=== PATIENT | female | born 1950 | race Caucasian/White ===

== ENCOUNTER → 2017-04-05 | Outpatient (CLI) | payer MEDICARE ==
[~2017-04-05] MED LIST: ASPI81CH37 CHEW; ATEN50TA PO; CLOR7.5T3 PO; COMMODE 3-IN-11 MIS; CPMMACHINE; DULA10IN SQ; ENOX40P SQ; GABA300C5 PO; HYDR-3288 PO; HYDR25TA5 PO; IBUP200C17 PO; LISI-515 PO; LOVA40TA PO; MULT1TAB PO; NOVONP2 SQ; NOVORP2 SQ; OMEP20TA PO; TRAM50TA PO; VITA1000 PO; VITA10002 PO; WALKER WHEELS/F1 MIS
[2017-04-05 09:11] LABS: AUTOMATED NEUTROPHIL # 7.1 TH/MM3 (1.8-7.7); BASOPHIL # 0.1 TH/MM3 (0-0.2); BASOPHIL % 0.8 % (0.0-2.0); EOSINOPHIL # 0.3 TH/MM3 (0-0.4); EOSINOPHIL % 3.1 % (0.0-4.0); HEMO FLAGS DIFF FINAL; LYMPH % 14.3 % (9.0-44.0); LYMPHOCYTE # 1.4 TH/MM3 (1.0-4.8); MEAN CELL VOLUME 89.3 FL (80.0-100.0); MEAN CORPUSCULAR HEMOGLOBIN 29.8 PG (27.0-34.0); MEAN CORPUSCULAR HGB CONC 33.3 % (32.0-36.0); MONO % 6.4 % (0.0-8.0); NEUT % 75.4 % (16.0-70.0); PLATELET COUNT 246 TH/MM3 (150-450); RED BLOOD COUNT 3.58 MIL/MM3 (4.00-5.30); RED CELL DISTRIBUTION WIDTH 13.4 % (11.6-17.2); WHITE BLOOD COUNT 9.4 TH/MM3 (4.0-11.0)
[2017-04-05 09:16] LABS: PROTHROMBIN TIME - PATIENT 10.6 SEC (9.8-11.6)
[2017-04-05 09:36] LABS: WESTERGREN SEDIMENTATION RATE 79 mm/hr (0-30)
[2017-04-05 09:37] LABS: ANION GAP 6 MEQ/L (5-15); AST (GOT) 10 U/L (15-37); BICARBONATE 24.7 MEQ/L (21.0-32.0); BLOOD UREA NITROGEN 31 MG/DL (7-18); CHLORIDE 100 MEQ/L (98-107); GLOMERULAR FILTRATION RATE 42 ML/MIN (>89); GLUCOSE,FASTING 125 MG/DL (74-99); POTASSIUM 4.7 MEQ/L (3.5-5.1); SODIUM (NA) 131 MEQ/L (136-145)
[2017-04-05 09:43] LABS: ALKALINE PHOSPHATASE 102 U/L (45-117); ALT (GPT) 22 U/L (10-53); TOTAL BILIRUBIN ADULT 0.3 MG/DL (0.2-1.0)
--- NOTE | 2017-04-05 09:58 | RADRPT ---
EXAM DATE/TIME: 04/05/2017 09:37 [facility] COMPARISON: No previous studies available for comparison. INDICATIONS : Evaluate for pneumonia, pneumothorax or communicable disease. Preop chest for right knee replacement on 04/22/17 MEDICAL HISTORY : Chronic obstructive pulmonary disease. SURGICAL HISTORY : None. ENCOUNTER: Initial ACUITY: 1 day PAIN SCORE: 0/10 LOCATION: Bilateral chest FINDINGS: PA and lateral views of the chest demonstrate the lungs to be symmetrically aerated without evidence of mass, infiltrate or effusion. The cardiomediastinal contours are unremarkable. Osseous structure s are intact. CONCLUSION: Normal examination for a patient of this age. Quan Meyers MD on April 05, 2017 at 9:57 Board Certified Radiologist. This report was verified electronically.
[2017-04-05 10:48] LABS: BACTERIA, URINE FEW /hpf; BLOOD, URINE NEG (NEG); COMMENT (UR) CULTURE INDICATED; CULTURE IF INDICATED CULTURE INDICATED; GLUCOSE,URINE NEG (NEG); HYALINE CAST, URINE 13 /lpf (RARE); KETONE, URINE NEG (NEG); MUCUS URINE FEW /lpf (OCC); NITRITE,URINE NEG (NEG); PH, URINE 5.5 (5.0-8.5); SQUAMOUS EPITHELIAL CELL URINE 11 /hpf (0-5); URINE COLOR YELLOW (YELLW/STRAW)
== END ==
LOC: CPRE 08:36
PROVIDERS: ATTEND Orthopaedic Surgery Sports Medicine
DX: Z01.810 Encounter for preprocedural cardiovascular examination (principal); Z01.811 Encounter for preprocedural respiratory examination; Z01.812 Encounter for preprocedural laboratory examination; Z01.818 Encounter for other preprocedural examination; Z96.60 Presence of unspecified orthopedic joint implant; Z79.01 Long term (current) use of anticoagulants; M25.50 Pain in unspecified joint; M17.11 Unilateral primary osteoarthritis, right knee; R82.99 Other abnormal findings in urine
CPT/HCPCS: 36415; 71020; 80053; 81001; 85025; 85610; 85652; 85730; 87086

== ENCOUNTER 2017-04-12 14:52 | Inpatient (IN) | payer MEDICARE ==
[~2017-04-12] VITALS: Ht 151.6 cm; Wt 96.1 kg
[~2017-04-12 14:52] MED LIST changes: -ASPI81CH37 CHEW; -COMMODE 3-IN-11 MIS; -CPMMACHINE; -ENOX40P SQ; -HYDR-3288 PO; -WALKER WHEELS/F1 MIS
[2017-04-22] MEDS ORDERED: HYDR-3288 PO (06:59)
[2017-04-22] MEDS ORDERED: ENOX40P SQ (07:00)
[2017-04-22] MEDS ORDERED: SODIUM CHLORIDE 0.9% FLUSH 5 ML FLUSH IVF PRN (07:00)
[2017-04-22] MEDS ORDERED: ZOLPIDEM TARTRATE 5 MG TAB PO PRN (07:00)
[2017-04-22] MEDS ORDERED: NALOXONE HCL 0.4 MG/ML AMP IV PRN (07:00)
[2017-04-22] MEDS ORDERED: ASPI81CH37 CHEW (07:00)
[2017-04-22] MEDS ORDERED: ONDANSETRON HCL 4 MG/2 ML VIAL IVP PRN (07:00)
[2017-04-22] MEDS ORDERED: Post-op Orders (for Pharmacy) MISC XX ONE (07:00)
[2017-04-22] MEDS: SODIUM CHLOR 0.9% 1000 ML INJ 1,000 ML IV SCH ×3 (07:00→22:32)
[2017-04-22] MEDS ORDERED: diphenhydrAMINE HCL 50 MG/ML VIAL IV PRN (07:00)
[2017-04-22] MEDS ORDERED: MORPHINE SULFATE 4 MG/ML INJ IV PUSH PRN (07:00)
[2017-04-22] MEDS ORDERED: ACETAMINOPHEN/HYDROcodone 325 MG/7.5 MG TAB PO PRN (07:00)
[2017-04-22] MEDS ORDERED: BISACODYL 10 MG SUPP RECTAL PRN (07:00)
[2017-04-22] MEDS ORDERED: TRANEXAMIC PERI-ARTICULAR 3,000 MG/NS 100 ML P-ARTICULR SCH ×2 (07:15)
[2017-04-22] MEDS ORDERED: CHLORHEXIDINE GLUCONATE 4% SOLN 120 ML BTL TOPICAL SCH (07:15)
[2017-04-22] MEDS ORDERED: POVIDONE IODINE 7.5% SCRUB 118 ML BOTTLE TOPICAL SCH (07:15)
[2017-04-22] MEDS ORDERED: VANCOMYCIN 1000 MG/NS 250 ML (for <70 kg) IV SCH ×2 (07:15)
[2017-04-22] MEDS ORDERED: TRANEXAMIC ACID IV SCH (07:15)
[2017-04-22] MEDS ORDERED: SODIUM CHLORIDE 0.9% IV SCH (07:15)
[2017-04-22] MEDS ORDERED: ROPIVACAINE PERI-ARTICULAR INJECTION. P-ARTICULR SCH ×5 (07:15)
[2017-04-22] MEDS ORDERED: DEXAMETHASONE SOD PHOS 20 MG/5 ML VIAL IV SCH (07:30)
[2017-04-22] MEDS ORDERED: LACTATED RINGER'S 1000 ML IV PRN (07:30)
[2017-04-22] MEDS ORDERED: INSULIN HUMAN REGULAR 1,000 UNITS/10 ML VIAL SQ PRN (07:30)
[2017-04-22] MEDS ORDERED: POVIDONE IODINE 5% (ANTISEPSIS KIT) 4 APPLICATIONS EACH NARE PRN (07:30)
[2017-04-22] MEDS ORDERED: ceFAZolin 2 GM PREMIX 50 ML IV SCH (07:30)
[2017-04-22] MEDS ORDERED: METOPROLOL TARTRATE 25 MG TAB PO PRN (07:30)
[2017-04-22] MEDS ORDERED: SODIUM CHLORID 0.9% 500 ML IV PRN (07:30)
[2017-04-22] MEDS ORDERED: CHLORHEXIDINE GLUCONATE 2 % 1 PACK (2 CLOTHS) TOPICAL PRN (07:30)
[2017-04-22] MEDS ORDERED: [UNRECOGNIZED DRUG - OTHER] PO (07:45)
[2017-04-22] MEDS ORDERED: CLORAZEPATE 7.5 MG PO (07:45)
[2017-04-22 07:48] VITALS: BP 185/78; PULSE 64; RESP 16; TEMP 98.3; O2SAT 97
[2017-04-22] MEDS ORDERED: DULAGLUTIDE 0.75 MG SQ SCH (08:00)
[2017-04-22] MEDS ORDERED: CLINDAMYCIN INJ 900 MG in SODIUM CHLORIDE 0.9% INJ 100 ML IV SCH (08:30)
[2017-04-22] MEDS ORDERED: SODIUM CHLORIDE 0.9% INJ 100 ML ONE (08:30)
[2017-04-22] MEDS: ATENOLOL 50 MG TAB PO SCH (09:00)
[2017-04-22] MEDS: GABAPENTIN 300 MG CAP PO SCH ×2 (09:00→22:32)
[2017-04-22] MEDS: SODIUM CHLORIDE 0.9% FLUSH 5 ML FLUSH IVF SCH ×2 (09:00→21:00)
[2017-04-22] MEDS: HYDROCHLOROTHIAZIDE 25 MG TAB PO SCH ×2 (09:00→22:32)
[2017-04-22] MEDS: PANTOPRAZOLE SOD 20 MG DELAYED RELEASE TAB PO SCH (09:00)
[2017-04-22] MEDS: PRAVASTATIN SOD 40 MG TAB PO SCH (09:00)
[2017-04-22] MEDS: LISINOPRIL 20 MG TAB PO SCH (09:00)
[2017-04-22] MEDS ORDERED: GENTAMICIN SULFATE 80 MG/2 ML VIAL ONE (09:18)
[2017-04-22] MEDS ORDERED: ACETAMINOPHEN 1000 MG/100 ML VIAL IV ONE (09:31)
[2017-04-22] MEDS ORDERED: FAMOTIDINE 20 MG/2 ML VIAL ONE (09:31)
[2017-04-22] MEDS ORDERED: MIDAZOLAM HCL 2 MG/2 ML VIAL ONE (09:31)
[2017-04-22] MEDS ORDERED: PROPOFOL 200 MG/20 ML AMP IV ONE (11:51)
--- NOTE | 2017-04-22 13:09 | RADRPT ---
EXAM DATE/TIME: 04/22/2017 12:32 [facility] COMPARISON: No previous studies available for comparison. INDICATIONS : Post operative right knee. MEDICAL HISTORY : None. SURGICAL HISTORY : None. ENCOUNTER: Initial ACUITY: 1 day PAIN SCORE: Non-responsive. LOCATION: Right knee. FINDINGS: AP and lateral views of the knee following arthroplasty reveals a prosthesis in anatomic alignment. F racture is not appreciated. There is intra-articular air. CONCLUSION: Status post total knee arthroplasty. Zane Lassiter MD FACR Board Certified Radiologist. This report was verified electronically.
[2017-04-22] MEDS ORDERED: DO NOT ADM ANY ANTICOAGULANT DRUGS PRN (13:15)
--- NOTE | 2017-04-22 13:30 | PD.CONS ---
HPI Service [facility] Hospitalists Consult Requested By Dr. Jarad Carr Reason for Consult Medical Management Primary Care Physician Cash Zambrano DO Diagnoses: History of Present Illness Ms. Vazquez is a pleasant 67 y/o WF with diabetes mellitus, HTN, hyperlipidemia and osteoarthritis. She was admitted to [facility] on 04/22/17 for elective right total knee arthroplasty with Dr. Carr. [facility] Hospitalist team was consulted to help with medical management. Pt is seen post-operatively and is without any specific complaints. Her pain is well controlled. Phipps cath is in place. Denies any chest pain, SOB, palpitations, dizziness, nausea/vomiting or abdominal pain. Review of Systems Constitutional: DENIES: Fever, Chills Respiratory: DENIES: Cough, Shortness of breath Cardiovascular: DENIES: Chest pain, Palpitations Gastrointestinal: DENIES: Abdominal pain, Nausea, Vomiting Musculoskeletal: DENIES: Joint pain Integumentary: DENIES: Rash Neurologic: DENIES: Headache Psychiatric: DENIES: Confusion Past Family Social History Past Medical History Anxiety Diabetes mellitus, type 2 Diabetic nephropathy HTN Hyperlipidemia Obesity GABRIELLA Osteoarthritis Vitamin B12 deficiency Past Surgical History Left total knee arthroplasty Tubal ligation Reported Medications -Hydrochlorothiazide 25 Mg PO BID -Clorazepate 7.5 Mg PO BID PRN -Omeprazole 20 Mg Tab 20 Mg PO DAILY -Lovastatin 40 Mg PO DAILY -Lisinopril 20 Mg PO DAILY --Novolin N Inj 35 Units SQ BID at breakfast and at bedtime --Novolin R Inj 25 units SQ at breakfast, 25 units SQ at lunch, and 44 units SQ at dinner --Tramadol 50 Mg PO DAILY PRN --Gabapentin 100 Mg PO BID --Atenolol 50 Mg PO BID ?Trulicity Inj (Dulaglutide Inj) 0.75 Mg/0.5 Ml Pen 0.75 Mg SQ Q7D SATURDAY -Centrum Silver Adult 50+ 1 Tab PO DAILY -Vitamin B-12 1,000 Mcg PO DAILY -Vitamin D-1000 50,000 Units PO WEEKLY -Advil Liqui-Gels 200 Mg Capsule 1 Cap PO BID Allergies: Coded Allergies: Penicillin (Verified Allergy, Intermediate, RXN= HIVES, 04/22/17) Ultram (Verified Adverse Reaction, Intermediate, Nausea/Vomiting, 04/22/17) Family History Mother with hx of diabetes, HTN, lung CA Father with hx of CAD Social History Denies any tobacco or illicit drug use Occasional alcohol use Lives alone in her private residence. Physical Exam Vital Signs Vital Signs Date Time Temp Pulse Resp B/P Pulse Ox O2 Delivery O2 Flow Rate FiO2 04/22/17 13:00 63 16 112/53 97 Room Air 04/22/17 12:45 65 16 114/62 98 Room Air 04/22/17 12:32 97.5 64 16 124/91 98 Room Air 04/22/17 07:48 98.3 64 16 185/78 97 Physical Exam GENERAL: This is a well-nourished, well-developed patient, in no apparent distress. HEENT: Atraumatic. Normocephalic. No temporal or scalp tenderness. No scleral icterus. Airway patent. NECK: Trachea midline, supple, nontender. CARDIO: Regular, 1/6 JOANNE. RESP: CTA bilaterally. No wheezes, rales, or rhonchi. ABD: +BS, soft, non-tender, nondistended. EXT: Right knee bandages are c/d/i, in CPM machine NEURO: Awake and alert. Motor and sensory grossly within normal limits. Normal speech. Laboratory Laboratory Tests Test 04/22/17 07:40 Blood Type A POSITIVE Antibody Screen NEGATIVE Blood Bank Comment Imaging Last Impressions Knee X-Ray 04/22/17 0691 Signed Impressions: Service Date/Time: Saturday, April 22, 2017 12:32 - CONCLUSION: Status post total knee arthroplasty. Zane Lassiter MD Assessment and Plan Problem List: (1) Primary localized osteoarthrosis, lower leg Status: Chronic Plan: - Pt s/p Right total knee arthroplasty on 04/22/[address] Carr - Post-op pain control per Ortho - PT daily - IS - Constipation precautions - DVT prophylaxis (2) Diabetes mellitus type 2, insulin dependent Status: Chronic Plan: - NPH 10 UNITS BID, pt normally takes 35 units BID - NovoLog SSI - Accu checks (3) HTN (hypertension), benign Status: Chronic Plan: - Home meds resumed with parameters - Monitor (4) Hyperlipidemia Status: Chronic Assessment and Plan Patient examined. Assessment and plan formulated with Angela Friedman PA-C. I agree with the above. s/p right tka. htn/dm cont lower insulin dosing and ssi. titrate as needed. dvt prophylaxis Problem Qualifiers (1) Primary localized osteoarthrosis, lower leg: Qualified Code: M17.11 - Primary localized osteoarthrosis, lower leg, right Angela Friedman Apr 22, 2017 13:30 Ryan Guan MD Apr 22, 2017 21:23
[2017-04-22] MEDS: INSULIN ASPART SUPPLEMENTAL SCALE SQ SCH ×2 (16:00→22:48)
[2017-04-22 16:08] VITALS: BP 167/70; PULSE 66; RESP 19; TEMP 95.6; O2SAT 98
[2017-04-22] MEDS ORDERED: DEXTROSE 50% IN WATER 50 ML VIAL(D50) IV PUSH PRN (16:30)
[2017-04-22] MEDS ORDERED: GLUCAGON 1 MG/ML VIAL OTHER PRN (16:30)
[2017-04-22] MEDS ORDERED: INSULIN HUMAN NPH 1,000 UNITS/10 ML VIAL SQ SCH (17:00)
[2017-04-22 19:00] VITALS: BP 150/67; PULSE 71; RESP 16; TEMP 96.9; O2SAT 97
[2017-04-22] MEDS: VANCOMYCIN INJ 1,000 MG in SODIUM CHLOR 0.9% 250 ML INJ 250 ML IV SCH (22:31)
[2017-04-23] VITALS: BP 131/53; PULSE 74; RESP 15; TEMP 97.1; O2SAT 95
[2017-04-23 00:05] VITALS: O2SAT 97
[2017-04-23 04:00] VITALS: BP 123/57; PULSE 68; RESP 16; TEMP 97.2; O2SAT 96
[2017-04-23] MEDS: INSULIN ASPART SUPPLEMENTAL SCALE SQ SCH ×3 (07:00→16:00)
[2017-04-23 07:18] LABS: HEMATOCRIT 25.1 % (35.0-46.0); MEAN CELL VOLUME 89.3 FL (80.0-100.0); MEAN CORPUSCULAR HGB CONC 34.7 % (32.0-36.0); PLATELET COUNT 212 TH/MM3 (150-450); RED BLOOD COUNT 2.81 MIL/MM3 (4.00-5.30); RED CELL DISTRIBUTION WIDTH 13.7 % (11.6-17.2); REVIEW FLAG FINAL; WHITE BLOOD COUNT 12.6 TH/MM3 (4.0-11.0)
[2017-04-23 07:47] LABS: POTASSIUM 4.6 MEQ/L (3.5-5.1)
[2017-04-23 08:00] VITALS: BP 175/74; PULSE 80; RESP 16; TEMP 99.1; O2SAT 100
[2017-04-23] MEDS: VANCOMYCIN INJ 1,000 MG in SODIUM CHLOR 0.9% 250 ML INJ 250 ML IV SCH (08:11)
[2017-04-23] MEDS: PRAVASTATIN SOD 40 MG TAB PO SCH (08:12)
[2017-04-23] MEDS: GABAPENTIN 300 MG CAP PO SCH (08:12)
[2017-04-23] MEDS: LISINOPRIL 20 MG TAB PO SCH (08:12)
[2017-04-23] MEDS: SODIUM CHLORIDE 0.9% FLUSH 5 ML FLUSH IVF SCH (08:13)
[2017-04-23] MEDS: PANTOPRAZOLE SOD 20 MG DELAYED RELEASE TAB PO SCH (08:13)
[2017-04-23] MEDS: ATENOLOL 50 MG TAB PO SCH (08:13)
[2017-04-23] MEDS: HYDROCHLOROTHIAZIDE 25 MG TAB PO SCH (08:13)
--- NOTE | 2017-04-23 08:24 | PD.ORT.PN ---
Subjective Post Op Day #: 1 Subjective Remarks pain tolerable. Objective Vitals Vital Signs Date Time Temp Pulse Resp B/P Pulse Ox O2 Delivery O2 Flow Rate FiO2 04/23/17 04:00 97.2 68 16 123/57 96 04/23/17 00:05 97 04/23/17 00:00 97.1 74 15 131/53 95 04/22/17 19:00 96.9 71 16 150/67 97 04/22/17 16:08 95.6 66 19 167/70 98 04/22/17 14:01 67 16 144/67 98 Room Air 04/22/17 13:45 65 16 143/64 99 Room Air 04/22/17 13:30 63 16 120/58 98 Room Air 04/22/17 13:15 62 16 125/60 97 Room Air 04/22/17 13:00 63 16 112/53 97 Room Air 04/22/17 12:45 65 16 114/62 98 Room Air 04/22/17 12:32 97.5 64 16 124/91 98 Room Air I/O 04/22/17 04/22/17 04/22/17 04/23/17 04/23/17 04/23/17 07:00 15:00 23:00 07:00 15:00 23:00 Intake Total 480 ml 1090 ml Output Total 850 ml Balance 480 ml 240 ml Intake Oral 480 ml 240 ml IV Total 850 ml Output Urine Total 850 ml # Voids 2 # Bowel Movements 0 0 Result Diagram: 04/23/17 0604 04/23/17 0604 Objective Remarks in chair, nad incision no erythema, no drainage neg homans nvi Assessment & Plan Ortho Post Op Day #: 1 Problem List: Assessment and Plan s/p R TKA wbat daily dressing changes lovenox d/c planning to snf [id number] signed rx in chart f/up dr. aguilar 2 weeks Jar[place] Apr 23, 2017 08:23
[2017-04-23] MEDS: INSULIN HUMAN NPH 1,000 UNITS/10 ML VIAL SQ SCH ×2 (08:25→17:00)
--- NOTE | 2017-04-23 08:25 | HHI.DCPOC ---
Discharge Care Plan Diagnosis: (1) Primary localized osteoarthrosis, lower leg Your Health Problems Are: Difficulty with ADL Goals to Promote Your Health * To prevent worsening of your condition and complications * To maintain your health at the optimal level Directions to Meet Your Goals Take your medications as prescribed Follow your dietary instruction Follow activity as directed Keep your appointments as scheduled Take your immunizations and boosters as scheduled If your symptoms worsen call your PCP, if no PCP go to Urgent Care Center or Emergency Room Smoking is Dangerous to Your Health. Avoid second hand smoke Call the 24-hour hour crisis hotline for domestic abuse at Jarad [place] Apr 23, 2017 08:25
[2017-04-23] MEDS ORDERED: WALKER WHEELS/F1 MIS (08:27)
[2017-04-23] MEDS ORDERED: CPMMACHINE (08:27)
[2017-04-23] MEDS ORDERED: COMMODE 3-IN-11 MIS (08:28)
[2017-04-23] MEDS ORDERED: PNEUMOCOCCAL POLYVALENT INJ 25 MCG/0.5 ML SYR IM ONE (10:00)
[2017-04-23] MEDS: ACETAMINOPHEN/HYDROcodone 325 MG/7.5 MG TAB PO PRN ×2 (10:44→15:59)
[2017-04-23 12:00] VITALS: BP 165/73; PULSE 66; RESP 16; TEMP 96.2; O2SAT 100
[2017-04-23] MEDS ORDERED: ENOXAPARIN SODIUM 40 MG/0.4 ML SYRINGE SQ SCH (12:00)
[2017-04-23] MEDS: SODIUM CHLOR 0.9% 1000 ML INJ 1,000 ML IV SCH (13:00)
[2017-04-23 16:59] VITALS: RESP 18
[2017-04-23] MEDS ORDERED: MULTIVITAMINS/MINERALS THERAPEUTIC TAB PO SCH (21:00)
[2017-04-23] MEDS ORDERED: DOCUSATE SODIUM 100 MG CAP PO SCH (21:00)
--- NOTE | 2017-04-24 10:43 | MP ---
cc: TAMMY GARCIA M.D. DATE OF SURGERY 04/22/2017 PREOPERATIVE DIAGNOSIS Right knee osteoarthritis POSTOPERATIVE DIAGNOSIS Right knee osteoarthritis PROCEDURE Right total knee arthroplasty SURGEON Dr. Tammy Garcia BOOT TURNER LALIT Morrissey ANESTHESIA Spinal with a femoral nerve block ESTIMATED BLOOD LOSS 50 cc COMPLICATIONS None IMPLANTS USED DePuy attune size 4 posterior stabilized femoral component, size 4 rotating platform tibia baseplate, size 5 mm polyethylene tibial insert, size 32 patella. JUSTIFICATION This patient is a 67-year-old female with a history severe end-stage osteoarthritis involving the right knee. She has severe disabling pain with standing, walking, ambulation and weight bearing activities, severe pain at rest. She has failed greater than three months of nonoperative conservative treatment modalities to include medication therapy, injections, ambulatory assisted aids, home exercise program, activity modification, weight-loss attempts. X-rays of the right knee revealed severe end-stage osteoarthritis with [id number] joint space narrowing, subchondral sclerosis, subchondral cyst osteophyte formation and varus deformity. The patient counseled as to the risks, benefits and alternatives to a total knee arthroplasty. The risks were discussed which include, but not limited to anesthesia, bleeding, infection, damage to nerves, blood vessels, pain, stiffness, failure of components, blood clots, pulmonary embolism and even . The patient's pain is severe. She favored the benefits over the risks and did wish to proceed with surgery. PROCEDURE IN DETAIL A written consent was obtained. The patient identified by name. She was taken to the operating room where spinal anesthesia was administered, as well as a femoral nerve block. A well-padded tourniquet was placed on the right thigh. The right lower extremity prepped and draped using Isopropyl alcohol, Hibiclens solution and Chloraprep solution. After a time-out was performed, an Esmarch bandage was used to exsanguinate the right lower extremity. The tourniquet was inflated to 250 mmHg. A longitudinal incision made over the anterior aspect of the right knee. A medial parapatellar arthrotomy was performed. The patella was everted and a patella resection guide was used to resect 9 mm from the patella. A size 32 mm guide was placed, three drills were placed and a 32 mm trial fit well. Attention was turned to the femur where an intramedullary guide wire was placed and the distal femoral guide was set to remove 10 mm of distal femur, 5 degrees off the anatomic valgus axis alignment and also excised from the distal femoral cut. Attention was turned to the tibia where an extramedullary tibial guide was set to remove 5 mm off the lowest portion of the medial tibial plateau. The tibia guide was pinned in place and a tibial cut was performed. A 5-mm spacer block showed full extension. Attention was turned back to the femur where the AP sizing block measured a size 4. The anterior reference three degree external rotation guide was used to pin a size [address] The anterior, posterior and chamfer cuts were performed. A size 4 PCL box cut was pinned in place and the PCL was box cut with an oscillating saw. The medial and lateral meniscus remnants were removed as well as bone and soft tissue debris from the posterior portion of the knee. A size 4 tibia base was pinned in placed, the tibia was drilled and punched, trial components were evaluated and final components cemented in place. With the current components, the leg could achieve full extension 0 degrees and flexion to 140. No evidence of tibial lift-off, varus-valgus balance appeared appropriate and symmetric. There was slight lateral tracking of the patella and a partial lateral release was performed which allowed for central patellar tracking. The tourniquet was deflated. Bovie cautery was used for hemostasis. The surgical wounds were thoroughly irrigated with sterile saline pulse lavage antibiotic impregnated solution. The arthrotomy incision was closed with #1 Vicryl suture, subcutaneous layer 2-0 Vicryl suture and skin was closed with Dermabond. A sterile dressing applied. The patient tolerated the procedure well. No intraoperative complications noted. [place] physician financial administrative assistant certified was present during the entire procedure to include patient positioning and the procedure itself. The medical necessity of a physician financial administrative assistant was indicated in this case due to the complexity of the procedure. He assisted with appropriate manipulation of the leg and also traction of muscle, tendon, bone and neurovascular structures. He assisted with preparation as well as implantation of the prosthetic replacement. MD ABHISHEK Romo/RIO /12:14 PM /10:25 AM
== END 2017-04-23 19:58 | DRG 470 ==
LOC: HSDI 04-22 06:41 → N06B 04-22 14:39
PROVIDERS: ADMIT Orthopaedic Surgery Sports Medicine; ATTEND Orthopaedic Surgery Sports Medicine
PROC: 3E0T3CZ (ICD-10-PCS; 2017-04-22)
PROC: 0SRC0J9 Replacement of Right Knee Joint with Synthetic Substitute, Cemented, Open Approach (ICD-10-PCS; principal; 2017-04-22 09:58)
DX: M17.11 Unilateral primary osteoarthritis, right knee (principal); E11.21 Type 2 diabetes mellitus with diabetic nephropathy; K76.0 Fatty (change of) liver, not elsewhere classified; Z68.41 Body mass index [BMI] 40.0-44.9, adult; J44.9 Chronic obstructive pulmonary disease, unspecified; I10 Essential (primary) hypertension; E66.9 Obesity, unspecified; E78.5 Hyperlipidemia, unspecified; K21.9 Gastro-esophageal reflux disease without esophagitis; F41.9 Anxiety disorder, unspecified; G47.33 Obstructive sleep apnea (adult) (pediatric); Z96.652 Presence of left artificial knee joint; Z79.4 Long term (current) use of insulin; Z23 Encounter for immunization
CPT/HCPCS: 73560; 80048; 82948; 85027; 86850; 86900; 86901; 90732; 94150; C1776; J0131; J0171; J0735; J1100; J1580; J1650; J1815; J1885; J2250; J2795; J3370; J7030; J7050; J7120; L1830

== ENCOUNTER 2017-05-12 14:50 | Inpatient (IN) | payer MEDICARE ==
[~2017-05-12] VITALS: Ht 149.9 cm; Wt 95.7 kg
[~2017-05-12 14:50] MED LIST changes: +ASPI81CH37 CHEW; +COMMODE 3-IN-11 MIS; +CPMMACHINE; +ENOX40P SQ; +HYDR-3288 PO; -IBUP200C17 PO; +WALKER WHEELS/F1 MIS
[2017-05-12 15:00] VITALS: BP 170/90; PULSE 91; RESP 21; TEMP 98.6; O2SAT 98
[2017-05-12 15:14] VITALS: O2SAT 98
[2017-05-12] MEDS ORDERED: SODIUM CHLORIDE 0.9% FLUSH 10 ML FLUSH IV FLUSH PRN ×2 (15:15→18:00)
[2017-05-12] MEDS ORDERED: SODIUM CHLORID 0.9% 500 ML INJ 500 ML IV ONE ×2 (15:15→17:15)
[2017-05-12] MEDS ORDERED: ONDANSETRON HCL 4 MG/2 ML VIAL IVP ONE (15:15)
--- NOTE | 2017-05-12 15:21 | PD ---
HPI Chief Complaint: GI Complaint Time Seen by Provider: 15:07 Travel History International Travel<30 days: No Contact w/Intl Traveler<30days: No Traveled to known affect area: No History of Present Illness HPI 67-year-old female with history of right knee replacement done 2 weeks ago, presents to the ER today for 2 days history of worsening nausea, vomiting, not improved with Zofran. She denies any fevers, states that she did have some loose stools today. She denies any blood in the stools, abdominal pains, or any other symptoms. Modifying Factors: None Associated Signs & Symptoms: Nausea, vomiting, loose stool Risk Factors: Recent surgery PFSH Past Medical History Asthma: Yes Cancer: No Cardiovascular Problems: No (MURMUR) High Cholesterol: Yes COPD: Yes Diabetes: Yes (TYPE II ) Endocrine: Yes GERD: Yes Genitourinary: No Hepatitis: No Hiatal Hernia: Yes Immune Disorder: No Musculoskeletal: Yes (OA) Neurologic: No Psychiatric: No Reproductive: No Respiratory: Yes (COPD) Thyroid Disease: No Ulcer: Yes Past Surgical History Abdominal Surgery: Yes (HERNIA) AICD: No Body Medical Devices: PARTIAL L KNEE Cardiac Surgery: No Ear Surgery: No Endocrine Surgery: No Eye Surgery: No Genitourinary Surgery: No Gynecologic Surgery: Yes (TUBAL) Joint Replacement: Yes (PARTIAL L KNEE AND R TOTAL KNEE) Oral Surgery: Yes (T&A) Pacemaker: No Thoracic Surgery: No Social History Alcohol Use: No Tobacco Use: No Substance Use: No Allergies-Medications (Allergen,Severity, Reaction): Coded Allergies: Penicillin (Verified Allergy, Intermediate, RXN= HIVES, 05/12/17) Ultram (Verified Adverse Reaction, Intermediate, Nausea/Vomiting, 05/12/17) Reported Meds & Prescriptions Reported Meds & Active Scripts Active Commode 3-in-1 (Device) 1 Mis Mis 1 Ea .ROUTE DIRECTED Walker with Front Wheels (Device) 1 Mis Mis 1 Ea .ROUTE DIRECTED CPM-Continuous Passive Motion Machine 1 Ea Device 1 Ea .ROUTE DIRECTED Aspirin Low Dose (Aspirin) 81 Mg Chew 81 Mg CHEW BID Lovenox Inj (Enoxaparin Sodium) 40 Mg/0.4 Ml Syr 40 Mg SQ DAILY [place] (Hydrocodone-Acetaminophen) 7.5-325 mg Tab 1-2 Tab PO Q6H PRN Reported Hydrochlorothiazide 25 Mg Tab 25 Mg PO BID Trulicity Inj (Dulaglutide Inj) 0.75 Mg/0.5 Ml Pen 0.75 Mg SQ Q7D SATURDAY Novolin N Inj (Insulin Human NPH) 1,000 Unit/10 Ml Vial 0 SQ BID Sliding Scale As Directed. Novolin R Inj (Insulin Human Regular) 1,000 Unit/10 Ml Vial 0 SQ TID Sliding Scale As Directed. Clorazepate (Clorazepate Dipotassium) 7.5 Mg Tab 7.5 Mg PO BID PRN Tramadol (Tramadol HCl) 50 Mg Tab 50 Mg PO Q8H PRN Centrum Silver Adult 50+ (Multiple Vitamins W/ Minerals) 1 Tab Tab 1 Tab PO DAILY Vitamin B-12 (Cyanocobalamin) 1,000 Mcg Tab 1,000 Mcg PO DAILY Gabapentin 300 Mg Cap 300 Mg PO BID Vitamin D-1000 (Cholecalciferol) 1,000 Unit Tab 50,000 Units PO WEEKLY Omeprazole 20 Mg Tab 20 Mg PO DAILY Lovastatin 40 Mg Tab 40 Mg PO DAILY Atenolol 50 Mg Tab 50 Mg PO DAILY Lisinopril 20 Mg Tab 20 Mg PO DAILY Review of Systems Except as stated in HPI: all other systems reviewed are Neg Physical Exam Narrative GENERAL: Well-developed elderly white female patient currently in mild distress. Awake and oriented 3. SKIN: Focused skin assessment warm/dry. Right knee surgical site appears to be clean, dry, intact without starting erythema. HEAD: Atraumatic. Normocephalic. EYES: Pupils equal and round. No scleral icterus. No injection or drainage. ENT: No nasal bleeding or discharge. Mucous membranes pink and moist. NECK: Trachea midline. No JVD. CARDIOVASCULAR: Regular rate and rhythm. No murmur appreciated. RESPIRATORY: No accessory muscle use. Clear to auscultation. Breath sounds equal bilaterally. GASTROINTESTINAL: Abdomen soft, non-tender, nondistended. Hepatic and splenic margins not palpable. MUSCULOSKELETAL: No obvious deformities. No clubbing. No cyanosis. No edema. NEUROLOGICAL: Awake and alert. No obvious cranial nerve deficits. Motor grossly within normal limits. Normal speech. PSYCHIATRIC: Appropriate mood and affect; insight and judgment normal. Data Data Last Documented VS Vital Signs Date Time Temp Pulse Resp B/P Pulse Ox O2 Delivery O2 Flow Rate FiO2 05/12/17 15:14 98 Room Air 05/12/17 15:00 98.6 91 21 170/90 Orders Complete Blood Count With Diff (05/12/17 15:07) Comprehensive Metabolic Panel (05/12/17 15:07) Lipase (05/12/17 15:07) Urinalysis - C+S If Indicated (05/12/17 15:07) Abdomen, Flat & Upright (05/12/17 ) Iv Access Insert/Monitor (05/12/17 15:07) Ecg Monitoring (05/12/17 15:) Oximetry (05/12/17 15:07) Ondansetron Inj (Zofran Inj) (05/12/17 15:15) Sodium Chloride 0.9% Flush (Ns Flush) (05/12/17 15:15) Chest, Single Ap (05/12/17 15:07) Sodium Chlorid 0.9% 500 Ml Inj (Ns 500 M (05/12/17 15:15) Sodium Chlorid 0.9% 500 Ml Inj (Ns 500 M (05/12/17 17:15) Admit Order (Ed Use Only) (05/12/17 17:15) Labs Laboratory Tests Test 05/12/17 15:15 White Blood Count 11.1 TH/MM3 Red Blood Count 3.34 MIL/MM3 Hemoglobin 9.9 GM/DL Hematocrit 27.9 % Mean Corpuscular Volume 83.6 FL Mean Corpuscular Hemoglobin 29.5 PG Mean Corpuscular Hemoglobin 35.3 % Concent Red Cell Distribution Width 13.0 % Platelet Count 377 TH/MM3 Mean Platelet Volume 6.5 FL Neutrophils (%) (Auto) 82.5 % Lymphocytes (%) (Auto) 8.9 % Monocytes (%) (Auto) 8.2 % Eosinophils (%) (Auto) 0.3 % Basophils (%) (Auto) 0.1 % Neutrophils # (Auto) 9.1 TH/MM3 Lymphocytes # (Auto) 1.0 TH/MM3 Monocytes # (Auto) 0.9 TH/MM3 Eosinophils # (Auto) 0.0 TH/MM3 Basophils # (Auto) 0.0 TH/MM3 CBC Comment DIFF FINAL Differential Comment Sodium Level 105 MEQ/L Potassium Level 4.3 MEQ/L Chloride Level 71 MEQ/L Carbon Dioxide Level 23.4 MEQ/L Anion Gap 11 MEQ/L Blood Urea Nitrogen 12 MG/DL Creatinine 0.85 MG/DL Estimat Glomerular Filtration 66 ML/MIN Rate Random Glucose 190 MG/DL Calcium Level 8.7 MG/DL Total Bilirubin 0.7 MG/DL Aspartate Amino Transf 17 U/L (AST/SGOT) Alanine Aminotransferase 26 U/L (ALT/SGPT) Alkaline Phosphatase 110 U/L Total Protein 7.3 GM/DL Albumin 3.9 GM/DL Lipase 138 U/L MDM Medical Decision Making Medical Screen Exam Complete: Yes Emergency Medical Condition: Yes Medical Record Reviewed: Yes Interpretation(s) Laboratory Tests Test 05/12/17 15:15 White Blood Count 11.1 TH/MM3 (4.0-11.0) Red Blood Count 3.34 MIL/MM3 (4.00-5.30) Hemoglobin 9.9 GM/DL (11.6-15.3) Hematocrit 27.9 % (35.0-46.0) Mean Platelet Volume 6.5 FL (7.0-11.0) Neutrophils (%) (Auto) 82.5 % (16.0-70.0) Lymphocytes (%) (Auto) 8.9 % (9.0-44.0) Monocytes (%) (Auto) 8.2 % (0.0-8.0) Neutrophils # (Auto) 9.1 TH/MM3 (1.8-7.7) Sodium Level 105 MEQ/L (136-145) Chloride Level 71 MEQ/L (98-107) Estimat Glomerular Filtration 66 ML/MIN (>89) Rate Random Glucose 190 MG/DL (74-106) Differential Diagnosis Nausea, vomiting, diarrheagastroenteritis versus medication side effects versus dehydration versus metabolic issues Narrative Course X-rays of the abdomen did not show any signs of obstruction. Abdomen is fairly benign. Her lab work is showing significant hyponatremia of uncertain etiology but his suspect the vomiting could be a possible cause. IV fluids have been given in the ER and patient has been given Zofran. At this point, my plan would be to admit the patient for further treatment. Case was discussed with Dr. Ramey who accepts the patient for admission to [facility]. Diagnosis Primary Impression: Acute hyponatremia Additional Impression: Vomiting Admitting Information Admitting Physician Requests: Admit Mariam Pineda MD May 12, 2017 15:21
--- NOTE | 2017-05-12 16:13 | RADRPT ---
EXAM DATE/TIME: 05/12/2017 15:49 [facility] COMPARISON: No previous studies available for comparison. INDICATIONS : Nausea and vomiting for four days causing general weakness. MEDICAL HISTORY : Hernia SURGICAL HISTORY : Total knee replacement, left. Total knee replacement, right. Hernia ENCOUNTER: Initial ACUITY: 4 - 6 days PAIN SCORE: 0/10 LOCATION: Bilateral chest FINDINGS: A single view of the chest demonstrates the lungs to be symmetrically aerated without evidence of mas s, infiltrate or effusion. The cardiomediastinal contours are unremarkable. Osseous structures are intact. CONCLUSION: No acute disease. Wilfrido Wynne MD on May 12, 2017 at 16:12 Board Certified Radiologist. This report was verified electronically.
--- NOTE | 2017-05-12 16:15 | RADRPT ---
EXAM DATE/TIME: 05/12/2017 15:50 [facility] COMPARISON: No previous studies available for comparison. INDICATIONS : Nausea and vomiting for four days causing general weakness. MEDICAL HISTORY : Hernia SURGICAL HISTORY : Total knee replacement, left. Total knee replacement, right. Hernia repair. ENCOUNTER: Initial ACUITY: 4 - 6 days PAIN SCORE: 6/10 LOCATION: Bilateral Abdomen FINDINGS: Supine and upright views of the abdomen were performed. The abdominal bowel gas pattern is nonspecif ic with air throughout the GI tract. There is no evidence of pathologic distention. No air fluid lev els are seen. No abnormal masses, calcifications, or organomegaly is seen. The visualized lower zeke gs are clear. No evidence of free intraperitoneal gas. The osseous structures are unremarkable. CONCLUSION: Nonspecific gas pattern No evidence of pathologic distention, free air or mass effect. Wilfrido Wynne MD on May 12, 2017 at 16:12 Board Certified Radiologist. This report was verified electronically.
[2017-05-12 16:27] LABS: AUTOMATED NEUTROPHIL # 9.1 TH/MM3 (1.8-7.7); BASOPHIL % 0.1 % (0.0-2.0); EOSINOPHIL % 0.3 % (0.0-4.0); HEMATOCRIT 27.9 % (35.0-46.0); HEMO FLAGS DIFF FINAL; LYMPH % 8.9 % (9.0-44.0); MEAN CELL VOLUME 83.6 FL (80.0-100.0); MEAN CORPUSCULAR HEMOGLOBIN 29.5 PG (27.0-34.0); MEAN CORPUSCULAR HGB CONC 35.3 % (32.0-36.0); MONO % 8.2 % (0.0-8.0); NEUT % 82.5 % (16.0-70.0); PLATELET COUNT 377 TH/MM3 (150-450); RED BLOOD COUNT 3.34 MIL/MM3 (4.00-5.30); WHITE BLOOD COUNT 11.1 TH/MM3 (4.0-11.0)
[2017-05-12 16:50] LABS: ANION GAP 11 MEQ/L (5-15)
[2017-05-12 16:57] LABS: ALKALINE PHOSPHATASE 110 U/L (45-117); ALT (GPT) 26 U/L (10-53); AST (GOT) 17 U/L (15-37); BICARBONATE 23.4 MEQ/L (21.0-32.0); BLOOD UREA NITROGEN 12 MG/DL (7-18); CHLORIDE 71 MEQ/L (98-107); GLOMERULAR FILTRATION RATE 66 ML/MIN (>89); POTASSIUM 4.3 MEQ/L (3.5-5.1); TOTAL BILIRUBIN ADULT 0.7 MG/DL (0.2-1.0)
[2017-05-12 17:03] LABS: SODIUM (NA) 105 MEQ/L (136-145)
[2017-05-12] MEDS ORDERED: BISACODYL 10 MG SUPP RECTAL PRN (18:00)
[2017-05-12] MEDS ORDERED: SENNOSIDES 8.6 MG TAB PO PRN (18:00)
[2017-05-12] MEDS ORDERED: LACTULOSE SYRUP 20 GM/30 ML CUP PO PRN (18:00)
[2017-05-12] MEDS ORDERED: MAGNESIUM HYDROXIDE SUSP 30 ML CUP PO PRN (18:00)
[2017-05-12] MEDS ORDERED: NALOXONE HCL 0.4 MG/ML AMP IV PRN (18:00)
[2017-05-12] MEDS ORDERED: ENALAPRILAT 1.25 MG/ML VIAL IV PUSH PRN (19:00)
[2017-05-12 19:12] VITALS: BP 183/74; PULSE 89; RESP 14; O2SAT 99
[2017-05-12] MEDS: SODIUM CHLOR 0.9% 1000 ML INJ 1,000 ML IV SCH (19:13)
[2017-05-12] MEDS ORDERED: ONDANSETRON HCL 4 MG/2 ML VIAL IV PUSH PRN (19:15)
[2017-05-12] MEDS ORDERED: DIAZEPAM 5 MG TAB PO PRN (19:15)
[2017-05-12] MEDS ORDERED: cloNIDine HCL 0.1 MG TAB PO PRN (19:15)
[2017-05-12] MEDS ORDERED: traMADol HCL 50 MG TAB PO PRN (19:15)
[2017-05-12] MEDS ORDERED: ACETAMINOPHEN/HYDROcodone 325 MG/7.5 MG TAB PO PRN (19:15)
--- NOTE | 2017-05-12 19:15 | HHI.HP ---
HPI Service [facility] Hospitalists Primary Care Physician Cash Zambrano, DO Admission Diagnosis severe hyponatremia/vomitting Chief Complaint: 2days intractable vomit with severe hyponatremia Travel History International Travel<30 Days: No Contact w/Intl Traveler <30 Da: No Traveled to Known Affected Are: No History of Present Illness 67-year-old female with history of right knee replacement done 2 weeks ago, presents to the ER today for 2 days history of worsening nausea, vomiting, not improved with Zofran. She denies any fevers, states that she did have some loose stools today. She denies any blood in the stools, abdominal pains, or any other symptoms. On lab work up showed sodium of 105 and was 134 2 weeks ago will start on ns IV fluid and follow up labs . denies any neurologic symptoms. Review of Systems Gastrointestinal: COMPLAINS OF: Nausea, Vomiting Past Family Social History Past Medical History asthma,copd,djd,GERD,hyperlipidemia,hiatal hernia Past Surgical History partial left knee total rt knee Reported Medications Aspirin Low Dose (Aspirin) 81 Mg Chew 81 Mg CHEW BID Lovenox Inj (Enoxaparin Sodium) 40 Mg/0.4 Ml Syr 40 Mg SQ DAILY [place] (Hydrocodone-Acetaminophen) 7.5-325 mg Tab 1-2 Tab PO Q6H PRN Reported Hydrochlorothiazide 25 Mg Tab 25 Mg PO BID Trulicity Inj (Dulaglutide Inj) 0.75 Mg/0.5 Ml Pen 0.75 Mg SQ Q7D SATURDAY Novolin N Inj (Insulin Human NPH) 1,000 Unit/10 Ml Vial 0 SQ BID Sliding Scale As Directed. Novolin R Inj (Insulin Human Regular) 1,000 Unit/10 Ml Vial 0 SQ TID Sliding Scale As Directed. Clorazepate (Clorazepate Dipotassium) 7.5 Mg Tab 7.5 Mg PO BID PRN Tramadol (Tramadol HCl) 50 Mg Tab 50 Mg PO Q8H PRN Centrum Silver Adult 50+ (Multiple Vitamins W/ Minerals) 1 Tab Tab 1 Tab PO DAILY Vitamin B-12 (Cyanocobalamin) 1,000 Mcg Tab 1,000 Mcg PO DAILY Gabapentin 300 Mg Cap 300 Mg PO BID Vitamin D-1000 (Cholecalciferol) 1,000 Unit Tab 50,000 Units PO WEEKLY Omeprazole 20 Mg Tab 20 Mg PO DAILY Lovastatin 40 Mg Tab 40 Mg PO DAILY Atenolol 50 Mg Tab 50 Mg PO DAILY Lisinopril 20 Mg Tab 20 Mg PO DAILY Allergies: Coded Allergies: Penicillin (Verified Allergy, Intermediate, RXN= HIVES, 05/12/17) Ultram (Verified Adverse Reaction, Intermediate, Nausea/Vomiting, 05/12/17) Social History NS,ND Physical Exam Vital Signs Vital Signs Date Time Temp Pulse Resp B/P Pulse Ox O2 Delivery O2 Flow Rate FiO2 05/12/17 15:14 98 Room Air 05/12/17 15:00 98.6 91 21 170/90 98 Physical Exam GENERAL: This is a well-nourished, well-developed patient, in no apparent distress. SKIN: No rashes, ecchymoses or lesions. Cool and dry. HEAD: Atraumatic. Normocephalic. No temporal or scalp tenderness. EYES: Pupils equal round and reactive. Extraocular motions intact. No scleral icterus. No injection or drainage. ENT: Nose without bleeding, purulent drainage or septal hematoma. Throat without erythema, tonsillar hypertrophy or exudate. Uvula midline. Airway patent. NECK: Trachea midline. No JVD or lymphadenopathy. Supple, nontender, no meningeal signs. CARDIOVASCULAR: Regular rate and rhythm without murmurs, gallops, or rubs. RESPIRATORY: Clear to auscultation. Breath sounds equal bilaterally. No wheezes , rales, or rhonchi. GASTROINTESTINAL: Abdomen soft, non-tender, nondistended. No hepato-splenomegaly , or palpable masses. No guarding. MUSCULOSKELETAL: Extremities without clubbing, cyanosis, or edema. No joint tenderness, effusion, or edema noted. No calf tenderness. Negative Homans sign bilaterally. NEUROLOGICAL: Awake and alert. Cranial nerves II through XII intact. Motor and sensory grossly within normal limits. Five out of 5 muscle strength in all muscle groups. Normal speech. Laboratory Laboratory Tests Test 05/12/17 15:15 White Blood Count 11.1 Red Blood Count 3.34 Hemoglobin 9.9 Hematocrit 27.9 Mean Corpuscular Volume 83.6 Mean Corpuscular Hemoglobin 29.5 Mean Corpuscular Hemoglobin 35.3 Concent Red Cell Distribution Width 13.0 Platelet Count 377 Mean Platelet Volume 6.5 Neutrophils (%) (Auto) 82.5 Lymphocytes (%) (Auto) 8.9 Monocytes (%) (Auto) 8.2 Eosinophils (%) (Auto) 0.3 Basophils (%) (Auto) 0.1 Neutrophils # (Auto) 9.1 Lymphocytes # (Auto) 1.0 Monocytes # (Auto) 0.9 Eosinophils # (Auto) 0.0 Basophils # (Auto) 0.0 CBC Comment DIFF FINAL Differential Comment Sodium Level 105 Potassium Level 4.3 Chloride Level 71 Carbon Dioxide Level 23.4 Anion Gap 11 Blood Urea Nitrogen 12 Creatinine 0.85 Estimat Glomerular Filtration 66 Rate Random Glucose 190 Calcium Level 8.7 Total Bilirubin 0.7 Aspartate Amino Transf 17 (AST/SGOT) Alanine Aminotransferase 26 (ALT/SGPT) Alkaline Phosphatase 110 Total Protein 7.3 Albumin 3.9 Lipase 138 Result Diagram: 05/12/17 1515 05/12/17 1515 Imaging Last 24 hours Impressions Chest X-Ray 05/12/17 1507 Signed Impressions: Service Date/Time: Friday, May 12, 2017 15:49 - CONCLUSION: No acute disease. Wilfrido Wynne MD Abdomen X-Ray 05/12/17 0000 Signed Impressions: Service Date/Time: Friday, May 12, 2017 15:50 - CONCLUSION: Nonspecific gas pattern No evidence of pathologic distention, free air or mass effect. Wilfrido Wynne MD Course in er started on IV fluid Assessment and Plan Problem List: (1) Acute hyponatremia Status: Acute Plan: infuse normal saline may need 3 % if no improvement ,etiology may be recent nausea and vomit (2) Vomiting Status: Acute Plan: zofran IV (3) Diabetes mellitus type 2, insulin dependent Status: Chronic Plan: as having vomiting use sliding scale (4) HTN (hypertension), benign Status: Chronic Plan: continue home meds and add prn vasotec and clonidine Assessment and Plan further plan as case develops Code Status full Discussed Condition With patient Physician Certification 2 Midnight Certification Type: Admission for Inpatient Services Order for Inpatient Services The services are ordered in accordance with Medicare regulations or non- Medicare payer requirements, as applicable. In the case of services not specified as inpatient-only, they are appropriately provided as inpatient services in accordance with the 2-midnight benchmark. Estimated LOS (days): 3 3 days is the estimated time the patient will need to remain in the hospital, assuming treatment plan goals are met and no additional complications. Post-Hospital Plan: Not yet determined Cucchiarella,Brian C. MD May 12, 2017 19:15
[2017-05-12 19:36] VITALS: BP 178/70; PULSE 84; RESP 14; O2SAT 99
[2017-05-12 20:00] VITALS: BP 171/74; PULSE 84; RESP 18; TEMP 97; O2SAT 99
[2017-05-12] MEDS: SODIUM CHLORIDE 0.9% FLUSH 10 ML FLUSH IV FLUSH SCH (20:48)
[2017-05-12] MEDS: GABAPENTIN 300 MG CAP PO SCH (20:48)
[2017-05-12] MEDS: DOCUSATE SODIUM 50 MG/SENNA 8.6 MG TAB PO SCH (20:48)
[2017-05-12] MEDS: ASPIRIN 81 MG CHEW TAB CHEW SCH (20:48)
[2017-05-12 21:14] LABS: MEAN CORPUSCULAR HGB CONC 36.5 % (32.0-36.0)
[2017-05-12] MEDS: INSULIN ASPART SUPPLEMENTAL SCALE SQ SCH (21:22)
[2017-05-12] MEDS ORDERED: METOCLOPRAMIDE HCL 10 MG/2 ML VIAL IV PUSH PRN (21:45)
[2017-05-13] VITALS (8 sets, daily range): BP systolic 113–175; BP diastolic 53–78; PULSE 61–107; RESP 16–20; TEMP 95.8–98.2; O2SAT 96–99
[2017-05-13] MEDS: SODIUM CHLOR 0.9% 1000 ML INJ 1,000 ML IV SCH ×2 (04:00→14:19)
[2017-05-13] MEDS: PANTOPRAZOLE SOD 20 MG DELAYED RELEASE TAB PO SCH (06:00)
[2017-05-13] MEDS: INSULIN ASPART SUPPLEMENTAL SCALE SQ SCH ×4 (07:00→21:09)
[2017-05-13] MEDS: ENOXAPARIN SODIUM 40 MG/0.4 ML SYRINGE SQ SCH (08:57)
[2017-05-13] MEDS: ATENOLOL 50 MG TAB PO SCH (08:58)
[2017-05-13] MEDS: SODIUM CHLORIDE 0.9% FLUSH 10 ML FLUSH IV FLUSH SCH ×2 (08:58→21:02)
[2017-05-13] MEDS: LISINOPRIL 20 MG TAB PO SCH (08:58)
[2017-05-13] MEDS: ASPIRIN 81 MG CHEW TAB CHEW SCH ×2 (08:58→21:02)
[2017-05-13] MEDS: GABAPENTIN 300 MG CAP PO SCH ×2 (08:58→21:01)
[2017-05-13] MEDS: DOCUSATE SODIUM 50 MG/SENNA 8.6 MG TAB PO SCH ×2 (08:58→21:01)
[2017-05-13] MEDS: CYANOCOBALAMIN 1,000 MCG TAB PO SCH (08:58)
--- NOTE | 2017-05-13 10:02 | RADRPT ---
EXAM DATE/TIME: 05/13/2017 08:36 [place] COMPARISON: ABDOMEN FLAT & UPRIGHT, May 12, 2017, 15:50. INDICATIONS : Nausea and vomiting for several days ORAL CONTRAST: No oral contrast ingested. RADIATION DOSE: 20.99 CTDIvol (mGy) ; Patient body habitus MEDICAL HISTORY : Chronic obstructive pulmonary disease. Gastroesophageal reflux disease. SURGICAL HISTORY : None. ENCOUNTER: Initial ACUITY: 1 day PAIN SCALE: 3/10 LOCATION: diffuse abdomen TECHNIQUE: Volumetric scanning of the abdomen and pelvis was performed. Using automated exposure control and ad justment of the mA and/or kV according to patient size, radiation dose was kept as low as reasonably achievable to obtain optimal diagnostic quality images. DICOM format image data is available electro nically for review and comparison. FINDINGS: LOWER LUNGS: The visualized lower lungs are clear. LIVER: Homogeneous density without lesion. There is no dilation of the biliary tree. No calcified gallston es. SPLEEN: Normal size without lesion. PANCREAS: Within normal limits. KIDNEYS: Normal in size and shape. There is no mass, stone, or hydronephrosis. ADRENAL GLANDS: Within normal limits. VASCULAR: There is no aortic aneurysm. There is mild atherosclerotic disease. BOWEL/MESENTERY: The stomach, small bowel, and colon demonstrate no acute abnormality. There is no free intraperitone al air or fluid. Appendix is normal. ABDOMINAL WALL: There are postsurgical changes inferiorly with likely mesh present. RETROPERITONEUM: There is no lymphadenopathy. BLADDER: No wall thickening or mass. REPRODUCTIVE: There is a right adnexal/ovarian cystic lesion measuring 3 cm. It has a simple appearance. INGUINAL: There is no lymphadenopathy or hernia. MUSCULOSKELETAL: There are degenerative changes of the lumbar spine and left pelvis. There is likely an old healed lef t acetabulum fracture. CONCLUSION: 1. No acute finding is identified within the abdomen or pelvis to explain the clinical symptoms. 2. Nonacute findings include small hiatal hernia and mild atherosclerotic disease. 3. There is a 3 cm right adnexal cystic lesion that likely arises from the right ovary. It has a simp le appearance. Suggest correlating with any prior study to document longer term stability. If none ar e available recommend followup imaging to confirm stability. Suggest 6 month followup transabdominal and transvaginal pelvis ultrasound. Shadi Degroot MD on May 13, 2017 at 9:43 Board Certified Radiologist. This report was verified electronically.
--- NOTE | 2017-05-13 14:03 | HHI.PR ---
Subjective Remarks nausea improved. Objective Vitals Vital Signs Date Time Temp Pulse Resp B/P Pulse Ox O2 Delivery O2 Flow Rate FiO2 05/13/17 08:25 96.9 107 20 175/78 96 05/13/17 04:00 95.8 70 18 142/64 99 05/13/17 03:20 67 05/13/17 00:00 97.5 82 18 175/77 96 05/12/17 20:00 97.0 84 18 171/74 99 05/12/17 19:36 84 14 178/70 99 Room Air 05/12/17 19:12 89 14 183/74 99 Room Air 05/12/17 15:14 98 Room Air 05/12/17 15:00 98.6 91 21 170/90 98 05/12/17 05/12/17 05/13/17 15:00 23:00 07:00 # Voids 1 2 Result Diagram: 05/12/17 1515 05/13/17 0356 Imaging Last Impressions Abdomen/Pelvis CT 05/13/17 0600 Signed Impressions: Service Date/Time: Saturday, May 13, 2017 08:36 - CONCLUSION: 1. No acute finding is identified within the abdomen or pelvis to explain the clinical symptoms. 2. Nonacute findings include small hiatal hernia and mild atherosclerotic disease. 3. There is a 3 cm right adnexal cystic lesion that likely arises from the right ovary. It has a simple appearance. Suggest correlating with any prior study to document longer term stability. If none are available recommend followup imaging to confirm stability. Suggest 6 month followup transabdominal and transvaginal pelvis ultrasound. Shadi Degroot MD Chest X-Ray 05/12/17 1507 Signed Impressions: Service Date/Time: Friday, May 12, 2017 15:49 - CONCLUSION: No acute disease. Wilfrido Wynne MD Abdomen X-Ray 05/12/17 0000 Signed Impressions: Service Date/Time: Friday, May 12, 2017 15:50 - CONCLUSION: Nonspecific gas pattern No evidence of pathologic distention, free air or mass effect. Wilfrido Wynne MD Objective Remarks GENERAL: This is a well-nourished, well-developed patient, in no apparent distress. CARDIOVASCULAR: Regular rate and rhythm without murmurs, gallops, or rubs. RESPIRATORY: Clear to auscultation. Breath sounds equal bilaterally. No wheezes , rales, or rhonchi. GASTROINTESTINAL: Abdomen soft, non-tender, nondistended. Normal active bowel sounds MUSCULOSKELETAL: Extremities without clubbing, cyanosis, or edema. NEURO: Alert & Oriented x4 to person, place, time, situation. Moves all ext x4 A/P Problem List: (1) Acute hyponatremia Status: Acute Plan: - likely d/t n/v which pt had for 5 days prior to admission - continue IVFs - await stat repeat BMP - repeat BMP in AM - urine osmolality was ordered last night but NOT sent. - supportive care - DVT prophylaxis (2) Vomiting Status: Acute Plan: - improved - zofran IV - CT abd/pelvis (05/13/17) 1. No acute finding is identified within the abdomen or pelvis to explain the clinical symptoms. 2. Nonacute findings include small hiatal hernia and mild atherosclerotic disease. 3. There is a 3 cm right adnexal cystic lesion that likely arises from the right ovary. It has a simple appearance. Suggest correlating with any prior study to document longer term stability. If none are available recommend followup imaging to confirm stability. Suggest 6 month followup transabdominal and transvaginal pelvis ultrasound - see above (3) Diabetes mellitus type 2, insulin dependent Status: Chronic Plan: - stable - SSI (4) HTN (hypertension), benign Status: Chronic Plan: - stable - atenolol, lisinopril - prn vasotec, prn catapress (5) Adnexal cyst Status: Acute Plan: - incidental finding or right adnexal lesion on CT abd/pelvis (05/13/17) - see above - pt will need repeat imaging in 6 months to reassess for stability Slick Walker DO May 13, 2017 14:03
[2017-05-13 16:57] LABS: ALKALINE PHOSPHATASE 94 U/L (45-117); ALT (GPT) 22 U/L (10-53); ANION GAP 10 MEQ/L (5-15); AST (GOT) 13 U/L (15-37); BICARBONATE 21.3 MEQ/L (21.0-32.0); BLOOD UREA NITROGEN 9 MG/DL (7-18); CHLORIDE 86 MEQ/L (98-107); GLOMERULAR FILTRATION RATE 70 ML/MIN (>89); POTASSIUM 3.8 MEQ/L (3.5-5.1); TOTAL BILIRUBIN ADULT 0.5 MG/DL (0.2-1.0)
[2017-05-13 17:04] LABS: SODIUM (NA) 117 MEQ/L (136-145)
[2017-05-13 20:40] LABS: AUTOMATED NEUTROPHIL # 7.1 TH/MM3 (1.8-7.7); BASOPHIL # 0.1 TH/MM3 (0-0.2); BASOPHIL % 1.1 % (0.0-2.0); EOSINOPHIL # 0.3 TH/MM3 (0-0.4); HEMATOCRIT 25.6 % (35.0-46.0); LYMPH % 15.8 % (9.0-44.0); LYMPHOCYTE # 1.6 TH/MM3 (1.0-4.8); MEAN CELL VOLUME 84.4 FL (80.0-100.0); MEAN CORPUSCULAR HEMOGLOBIN 30.8 PG (27.0-34.0); MONO % 9.3 % (0.0-8.0); NEUT % 70.8 % (16.0-70.0); PLATELET COUNT 316 TH/MM3 (150-450); RED BLOOD COUNT 3.03 MIL/MM3 (4.00-5.30); RED CELL DISTRIBUTION WIDTH 13.4 % (11.6-17.2); WHITE BLOOD COUNT 10.1 TH/MM3 (4.0-11.0)
[2017-05-13 20:54] LABS: HEMO FLAGS DIFF FINAL
[2017-05-14] MEDS: SODIUM CHLOR 0.9% 1000 ML INJ 1,000 ML IV SCH ×2 (03:48→10:00)
[2017-05-14] MEDS: PANTOPRAZOLE SOD 20 MG DELAYED RELEASE TAB PO SCH (06:13)
[2017-05-14] MEDS: INSULIN ASPART SUPPLEMENTAL SCALE SQ SCH ×4 (07:00→20:26)
[2017-05-14 08:00] VITALS: BP 112/43; PULSE 59; RESP 18; TEMP 95.5; O2SAT 98
[2017-05-14] MEDS: LISINOPRIL 20 MG TAB PO SCH (08:57)
[2017-05-14] MEDS: CYANOCOBALAMIN 1,000 MCG TAB PO SCH (08:57)
[2017-05-14] MEDS: ASPIRIN 81 MG CHEW TAB CHEW SCH ×2 (08:57→20:24)
[2017-05-14] MEDS: DOCUSATE SODIUM 50 MG/SENNA 8.6 MG TAB PO SCH ×2 (08:57→20:24)
[2017-05-14] MEDS: ENOXAPARIN SODIUM 40 MG/0.4 ML SYRINGE SQ SCH (08:57)
[2017-05-14] MEDS: ATENOLOL 50 MG TAB PO SCH (08:57)
[2017-05-14] MEDS: GABAPENTIN 300 MG CAP PO SCH ×2 (08:57→20:24)
[2017-05-14] MEDS: SODIUM CHLORIDE 0.9% FLUSH 10 ML FLUSH IV FLUSH SCH ×2 (09:00→20:23)
[2017-05-14 12:00] VITALS: BP 121/50; PULSE 74; RESP 18; TEMP 97.6; O2SAT 97
--- NOTE | 2017-05-14 14:10 | HHI.PR ---
Subjective Remarks Pt is overall feeling better today She is tolerating oral intake, some nausea but is managed with antiemetics. Objective Vitals Vital Signs Date Time Temp Pulse Resp B/P Pulse Ox O2 Delivery O2 Flow Rate FiO2 05/14/17 08:00 95.5 59 18 112/43 98 05/13/17 23:30 96.0 62 18 124/58 98 05/13/17 19:32 96.8 72 19 113/53 96 05/13/17 16:00 97.0 61 16 117/55 97 05/13/17 05/13/17 05/14/17 15:00 23:00 07:00 Intake Total 1673 ml 360 ml 480 ml Balance 1673 ml 360 ml 480 ml Intake Oral 240 ml 360 ml 480 ml IV Total 1433 ml # Voids 4 2 2 # Bowel Movements 1 0 0 Result Diagram: 05/13/17 1937 05/13/17 1555 Other Results Laboratory Tests Test 05/12/17 05/12/17 05/13/17 05/13/17 15:15 19:00 03:56 15:55 White Blood Count 11.1 TH/MM3 Red Blood Count 3.34 MIL/MM3 Hemoglobin 9.9 GM/DL Hematocrit 27.9 % Mean Corpuscular Volume 83.6 FL Mean Corpuscular Hemoglobin 29.5 PG Mean Corpuscular Hemoglobin 35.3 % Concent Red Cell Distribution Width 13.0 % Platelet Count 377 TH/MM3 Mean Platelet Volume 6.5 FL Neutrophils (%) (Auto) 82.5 % Lymphocytes (%) (Auto) 8.9 % Monocytes (%) (Auto) 8.2 % Eosinophils (%) (Auto) 0.3 % Basophils (%) (Auto) 0.1 % Neutrophils # (Auto) 9.1 TH/MM3 Lymphocytes # (Auto) 1.0 TH/MM3 Monocytes # (Auto) 0.9 TH/MM3 Eosinophils # (Auto) 0.0 TH/MM3 Basophils # (Auto) 0.0 TH/MM3 CBC Comment DIFF FINAL Differential Comment Sodium Level 105 MEQ/L 108 MEQ/L 116 MEQ/L 117 MEQ/L Potassium Level 4.3 MEQ/L 3.8 MEQ/L Chloride Level 71 MEQ/L 86 MEQ/L Carbon Dioxide Level 23.4 MEQ/L 21.3 MEQ/L Anion Gap 11 MEQ/L 10 MEQ/L Blood Urea Nitrogen 12 MG/DL 9 MG/DL Creatinine 0.85 MG/DL 0.81 MG/DL Estimat Glomerular Filtration 66 ML/MIN 70 ML/MIN Rate Random Glucose 190 MG/DL 197 MG/DL Calcium Level 8.7 MG/DL 7.9 MG/DL Total Bilirubin 0.7 MG/DL 0.5 MG/DL Aspartate Amino Transf 17 U/L 13 U/L (AST/SGOT) Alanine Aminotransferase 26 U/L 22 U/L (ALT/SGPT) Alkaline Phosphatase 110 U/L 94 U/L Total Protein 7.3 GM/DL 5.8 GM/DL Albumin 3.9 GM/DL 3.1 GM/DL Lipase 138 U/L Serum Osmolality 231 MOSM/KG Test 05/13/17 19:37 White Blood Count 10.1 TH/MM3 Red Blood Count 3.03 MIL/MM3 Hemoglobin 9.3 GM/DL Hematocrit 25.6 % Mean Corpuscular Volume 84.4 FL Mean Corpuscular Hemoglobin 30.8 PG Mean Corpuscular Hemoglobin 36.5 % Concent Red Cell Distribution Width 13.4 % Platelet Count 316 TH/MM3 Mean Platelet Volume 7.1 FL Neutrophils (%) (Auto) 70.8 % Lymphocytes (%) (Auto) 15.8 % Monocytes (%) (Auto) 9.3 % Eosinophils (%) (Auto) 3.0 % Basophils (%) (Auto) 1.1 % Neutrophils # (Auto) 7.1 TH/MM3 Lymphocytes # (Auto) 1.6 TH/MM3 Monocytes # (Auto) 0.9 TH/MM3 Eosinophils # (Auto) 0.3 TH/MM3 Basophils # (Auto) 0.1 TH/MM3 CBC Comment DIFF FINAL Differential Comment Imaging Last Impressions Abdomen/Pelvis CT 05/13/17 0600 Signed Impressions: Service Date/Time: Saturday, May 13, 2017 08:36 - CONCLUSION: 1. No acute finding is identified within the abdomen or pelvis to explain the clinical symptoms. 2. Nonacute findings include small hiatal hernia and mild atherosclerotic disease. 3. There is a 3 cm right adnexal cystic lesion that likely arises from the right ovary. It has a simple appearance. Suggest correlating with any prior study to document longer term stability. If none are available recommend followup imaging to confirm stability. Suggest 6 month followup transabdominal and transvaginal pelvis ultrasound. Shadi Degroot MD Chest X-Ray 05/12/17 1507 Signed Impressions: Service Date/Time: Friday, May 12, 2017 15:49 - CONCLUSION: No acute disease. Wilfrido Wynne MD Abdomen X-Ray 05/12/17 0000 Signed Impressions: Service Date/Time: Friday, May 12, 2017 15:50 - CONCLUSION: Nonspecific gas pattern No evidence of pathologic distention, free air or mass effect. Wilfrido Wynne MD Objective Remarks General: NAD Chest: CTA bilaterally Cardiac: Regular Abd: +BS, soft ND/NT Ext: No edema A/P Problem List: (1) Acute hyponatremia Status: Acute Plan: - Pt is a 67 y/o female with diabetes mellitus, HTN, hyperlipidemia and osteoarthritis. - Pt was previously admitted to [facility] on 04/22/17 for elective right total knee arthroplasty with Dr. Carr and had a fairly uneventful hospitalization. - Pt reported to the ED on 05/12/14 with intractable vomiting and severe hyponatremia. - Pt had reportedly been having vomiting for 5 days prior to admission - Her sodium level at admission was 105. - She was given IVFs and Na+ level was monitored closely to ensure she does not correct too quickly. - Await stat repeat BMP for today - Repeat BMP in AM - Serum osmolality 231 - Urine osmolality was ordered on 05/12 but was NOT sent. Discuss with the nurse again today - Supportive care - DVT prophylaxis (2) Vomiting Status: Acute Plan: - Improving clinically - Zofran IV - CT abd/pelvis (05/13/17) --> No acute finding is identified within the abdomen or pelvis to explain the clinical symptoms. Nonacute findings include small hiatal hernia and mild atherosclerotic disease. There is a 3 cm right adnexal cystic lesion that likely arises from the right ovary. It has a simple appearance. Suggest 6 month followup transabdominal and transvaginal pelvis ultrasound - see above (3) Diabetes mellitus type 2, insulin dependent Status: Chronic Plan: - stable - NovoLog SSI - Accu checks (4) HTN (hypertension), benign Status: Chronic Plan: - stable - Cont. Atenolol 50mg po daily, Lisinopril 20mg po daily - prn Vasotec, prn Catapres (5) Adnexal cyst Status: Acute Plan: - Incidental finding or right adnexal lesion on CT abd/pelvis (05/13/17) - see above - pt will need repeat imaging in 6 months to reassess for stability Assessment and Plan Patient examined. Assessment and plan formulated with Angela Friedman PA-C. I agree with the above. Angela Friedman May 14, 2017 14:09 Slick Walker DO May 15, 2017 14:10
[2017-05-14 16:00] VITALS: BP 114/43; PULSE 61; RESP 18; TEMP 96.9; O2SAT 97
[2017-05-14 18:00] LABS: BICARBONATE 23.1 MEQ/L (21.0-32.0); POTASSIUM 3.8 MEQ/L (3.5-5.1)
[2017-05-14 18:29] LABS: BACTERIA, URINE MOD /hpf; BLOOD, URINE NEG (NEG); COMMENT (UR) CULTURE INDICATED; CULTURE IF INDICATED CULTURE INDICATED; GLUCOSE,URINE NEG (NEG); KETONE, URINE NEG (NEG); NITRITE,URINE NEG (NEG); SQUAMOUS EPITHELIAL CELL URINE 2 /hpf (0-5); URINE COLOR YELLOW (YELLW/STRAW)
[2017-05-14 19:30] VITALS: PULSE 70
[2017-05-14 20:16] VITALS: BP 139/60; PULSE 68; RESP 19; TEMP 96.7; O2SAT 95
[2017-05-15] VITALS (7 sets, daily range): BP systolic 116–168; BP diastolic 55–67; PULSE 54–71; RESP 17–18; TEMP 95.4–97.4; O2SAT 95–99
[2017-05-15] MEDS: SODIUM CHLOR 0.9% 1000 ML INJ 1,000 ML IV SCH ×2 (06:00→16:00)
[2017-05-15] MEDS: PANTOPRAZOLE SOD 20 MG DELAYED RELEASE TAB PO SCH (06:21)
[2017-05-15] MEDS: INSULIN ASPART SUPPLEMENTAL SCALE SQ SCH ×4 (06:22→20:21)
[2017-05-15] MEDS: SODIUM CHLORIDE 0.9% FLUSH 10 ML FLUSH IV FLUSH SCH ×2 (09:00→20:18)
[2017-05-15] MEDS: ATENOLOL 50 MG TAB PO SCH (09:57)
[2017-05-15] MEDS: ASPIRIN 81 MG CHEW TAB CHEW SCH ×2 (09:57→20:18)
[2017-05-15] MEDS: LISINOPRIL 20 MG TAB PO SCH (09:57)
[2017-05-15] MEDS: DOCUSATE SODIUM 50 MG/SENNA 8.6 MG TAB PO SCH ×2 (09:57→20:18)
[2017-05-15] MEDS: CYANOCOBALAMIN 1,000 MCG TAB PO SCH (09:57)
[2017-05-15] MEDS: GABAPENTIN 300 MG CAP PO SCH ×2 (09:57→20:18)
[2017-05-15] MEDS: ENOXAPARIN SODIUM 40 MG/0.4 ML SYRINGE SQ SCH (09:57)
[2017-05-15 10:03] LABS: AUTOMATED NEUTROPHIL # 5.5 TH/MM3 (1.8-7.7); BASOPHIL # 0.1 TH/MM3 (0-0.2); BASOPHIL % 0.8 % (0.0-2.0); EOSINOPHIL # 0.4 TH/MM3 (0-0.4); EOSINOPHIL % 5.2 % (0.0-4.0); HEMATOCRIT 25.9 % (35.0-46.0); HEMO FLAGS DIFF FINAL; LYMPH % 14.9 % (9.0-44.0); LYMPHOCYTE # 1.1 TH/MM3 (1.0-4.8); MEAN CELL VOLUME 87.3 FL (80.0-100.0); MEAN CORPUSCULAR HEMOGLOBIN 31.2 PG (27.0-34.0); MEAN CORPUSCULAR HGB CONC 35.7 % (32.0-36.0); MONO % 7.9 % (0.0-8.0); NEUT % 71.2 % (16.0-70.0); PLATELET COUNT 281 TH/MM3 (150-450); RED BLOOD COUNT 2.97 MIL/MM3 (4.00-5.30); RED CELL DISTRIBUTION WIDTH 13.5 % (11.6-17.2); WHITE BLOOD COUNT 7.7 TH/MM3 (4.0-11.0)
[2017-05-15 10:27] LABS: BICARBONATE 23.6 MEQ/L (21.0-32.0); MAGNESIUM 1.7 MG/DL (1.5-2.5)
--- NOTE | 2017-05-15 14:15 | HHI.PR ---
Subjective Remarks tolerating PO intake. No new complaints. Objective Vitals Vital Signs Date Time Temp Pulse Resp B/P Pulse Ox O2 Delivery O2 Flow Rate FiO2 05/15/17 12:00 96.8 54 18 127/60 98 05/15/17 08:00 97.2 62 18 168/67 98 05/15/17 03:50 96.7 68 18 119/60 98 05/15/17 00:23 96.7 67 18 116/55 95 05/14/17 20:16 96.7 68 19 139/60 95 05/14/17 19:30 70 05/14/17 16:00 96.9 61 18 114/43 97 05/14/17 05/14/17 05/15/17 15:00 23:00 07:00 Intake Total 600 ml 860 ml 1190 ml Balance 600 ml 860 ml 1190 ml Intake Oral 600 ml 360 ml 480 ml IV Total 500 ml 710 ml # Voids 3 2 3 # Bowel Movements 0 0 0 Result Diagram: 05/15/17 0725 05/15/17 0725 Imaging Last Impressions Abdomen/Pelvis CT 05/13/17 0600 Signed Impressions: Service Date/Time: Saturday, May 13, 2017 08:36 - CONCLUSION: 1. No acute finding is identified within the abdomen or pelvis to explain the clinical symptoms. 2. Nonacute findings include small hiatal hernia and mild atherosclerotic disease. 3. There is a 3 cm right adnexal cystic lesion that likely arises from the right ovary. It has a simple appearance. Suggest correlating with any prior study to document longer term stability. If none are available recommend followup imaging to confirm stability. Suggest 6 month followup transabdominal and transvaginal pelvis ultrasound. Shadi Degroot MD Chest X-Ray 05/12/17 1507 Signed Impressions: Service Date/Time: Friday, May 12, 2017 15:49 - CONCLUSION: No acute disease. Wilfrido Wynne MD Abdomen X-Ray 05/12/17 0000 Signed Impressions: Service Date/Time: Friday, May 12, 2017 15:50 - CONCLUSION: Nonspecific gas pattern No evidence of pathologic distention, free air or mass effect. Wilfrido Wynne MD Objective Remarks General: NAD Chest: CTA bilaterally Cardiac: Regular Abd: +BS, soft ND/NT Ext: No edema A/P Problem List: (1) Acute hyponatremia Status: Acute Plan: - Pt is a 67 y/o female with diabetes mellitus, HTN, hyperlipidemia and osteoarthritis. - Pt was previously admitted to [facility] on 04/22/17 for elective right total knee arthroplasty with Dr. Carr and had a fairly uneventful hospitalization. - Pt reported to the ED on 05/12/14 with intractable vomiting and severe hyponatremia. - Pt had reportedly been having vomiting for 5 days prior to admission - Her sodium level at admission was 105, NA 128 (05/15/17) - limited SIADH w/u NOT c/w SIADH - pt likely hyponatremic d/t n/v & poor PO intake - anticipate d/c 05/16 - Supportive care - DVT prophylaxis (2) Vomiting Status: Acute Plan: - Improving clinically - Zofran IV - CT abd/pelvis (05/13/17) --> No acute finding is identified within the abdomen or pelvis to explain the clinical symptoms. Nonacute findings include small hiatal hernia and mild atherosclerotic disease. There is a 3 cm right adnexal cystic lesion that likely arises from the right ovary. It has a simple appearance. Suggest 6 month followup transabdominal and transvaginal pelvis ultrasound - see above (3) Diabetes mellitus type 2, insulin dependent Status: Chronic Plan: - stable - NovoLog SSI - Accu checks (4) HTN (hypertension), benign Status: Chronic Plan: - stable - Cont. Atenolol 50mg po daily, Lisinopril 20mg po daily - prn Vasotec, prn Catapres (5) Adnexal cyst Status: Acute Plan: - Incidental finding or right adnexal lesion on CT abd/pelvis (05/13/17) - see above - pt will need repeat imaging in 6 months to reassess for stability Slick Walker DO May 15, 2017 14:15
[2017-05-16] VITALS (7 sets, daily range): BP systolic 130–151; BP diastolic 51–82; PULSE 62–98; RESP 16–18; TEMP 96.2–97.9; O2SAT 96–100
[2017-05-16] MEDS: PANTOPRAZOLE SOD 20 MG DELAYED RELEASE TAB PO SCH (06:51)
[2017-05-16] MEDS: INSULIN ASPART SUPPLEMENTAL SCALE SQ SCH ×4 (06:53→21:34)
[2017-05-16 07:50] LABS: AUTOMATED NEUTROPHIL # 5.9 TH/MM3 (1.8-7.7); BASOPHIL % 0.6 % (0.0-2.0); EOSINOPHIL # 0.5 TH/MM3 (0-0.4); EOSINOPHIL % 5.7 % (0.0-4.0); HEMATOCRIT 27.1 % (35.0-46.0); HEMO FLAGS DIFF FINAL; LYMPH % 12.4 % (9.0-44.0); MEAN CELL VOLUME 89.6 FL (80.0-100.0); MEAN CORPUSCULAR HGB CONC 33.5 % (32.0-36.0); NEUT % 73.3 % (16.0-70.0); PLATELET COUNT 292 TH/MM3 (150-450); RED BLOOD COUNT 3.02 MIL/MM3 (4.00-5.30); RED CELL DISTRIBUTION WIDTH 13.8 % (11.6-17.2)
[2017-05-16 08:04] LABS: BICARBONATE 26.5 MEQ/L (21.0-32.0)
[2017-05-16] MEDS: GABAPENTIN 300 MG CAP PO SCH ×2 (08:34→21:28)
[2017-05-16] MEDS: LISINOPRIL 20 MG TAB PO SCH ×2 (08:34→09:56)
[2017-05-16] MEDS: ENOXAPARIN SODIUM 40 MG/0.4 ML SYRINGE SQ SCH (08:34)
[2017-05-16] MEDS: ASPIRIN 81 MG CHEW TAB CHEW SCH ×2 (08:34→21:28)
[2017-05-16] MEDS: DOCUSATE SODIUM 50 MG/SENNA 8.6 MG TAB PO SCH ×2 (08:34→21:28)
[2017-05-16] MEDS: CYANOCOBALAMIN 1,000 MCG TAB PO SCH (08:34)
[2017-05-16] MEDS: SODIUM CHLORIDE 0.9% FLUSH 10 ML FLUSH IV FLUSH SCH ×2 (08:36→21:28)
[2017-05-16] MEDS: ATENOLOL 50 MG TAB PO SCH (09:56)
--- NOTE | 2017-05-16 13:19 | HHI.FF ---
Face to Face Verification Diagnosis: (1) Vomiting (2) Acute hyponatremia (3) HTN (hypertension), benign (4) Diabetes mellitus type 2, insulin dependent (5) Adnexal cyst Physical Therapy Order: Evaluate and Treat, Improve ambulation, Strength and gait training Home Health Nursing Order: Medical education Nursing assessment with vital signs Instructions: Please drawn CBC, BMP, Mg+ on Saturday05/20/17 and on Saturday,05/27/17 with results to her PCP, Dr. Cash Zambrano and Dr. Dr. Chacho Moura. Pt to be on fluid restriction to 1.5L daily due to her hyponatremia, please go over this with the patient. I have seen patient Freya Vazquez on 05/16/17. My clinical findings support the need for the requested home health care services because: Deconditioned w/ increased weakness I certify that my clinical findings support that this patient is homebound because: Unsteady gait/balance Angela Friedman May 16, 2017 13:19
--- NOTE | 2017-05-16 14:34 | HHI.PR ---
Subjective Remarks No new complaints. Objective Vitals Vital Signs Date Time Temp Pulse Resp B/P Pulse Ox O2 Delivery O2 Flow Rate FiO2 05/16/17 04:00 96.2 62 18 139/64 99 05/16/17 00:00 96.3 75 17 151/68 99 05/15/17 19:00 97.4 66 17 143/66 98 05/15/17 19:00 97.4 66 17 143/66 98 05/15/17 18:57 71 05/15/17 16:00 95.4 59 18 130/59 99 05/15/17 05/15/17 05/16/17 15:00 23:00 07:00 Intake Total 629 ml 1100 ml 1140 ml Balance 629 ml 1100 ml 1140 ml Intake Oral 480 ml 480 ml IV Total 629 ml 620 ml 660 ml # Voids 3 3 # Bowel Movements 0 0 Result Diagram: 05/16/17 0700 05/16/17 0700 Imaging Last Impressions Abdomen/Pelvis CT 05/13/17 0600 Signed Impressions: Service Date/Time: Saturday, May 13, 2017 08:36 - CONCLUSION: 1. No acute finding is identified within the abdomen or pelvis to explain the clinical symptoms. 2. Nonacute findings include small hiatal hernia and mild atherosclerotic disease. 3. There is a 3 cm right adnexal cystic lesion that likely arises from the right ovary. It has a simple appearance. Suggest correlating with any prior study to document longer term stability. If none are available recommend followup imaging to confirm stability. Suggest 6 month followup transabdominal and transvaginal pelvis ultrasound. Shadi Degroot MD Chest X-Ray 05/12/17 1507 Signed Impressions: Service Date/Time: Friday, May 12, 2017 15:49 - CONCLUSION: No acute disease. Wilfrido Wynne MD Abdomen X-Ray 05/12/17 0000 Signed Impressions: Service Date/Time: Friday, May 12, 2017 15:50 - CONCLUSION: Nonspecific gas pattern No evidence of pathologic distention, free air or mass effect. Wilfrido Wynne MD Objective Remarks General: NAD Chest: CTA bilaterally Cardiac: Regular Abd: +BS, soft ND/NT Ext: No edema A/P Problem List: (1) Acute hyponatremia Status: Acute Plan: - Pt is a 67 y/o female with diabetes mellitus, HTN, hyperlipidemia and osteoarthritis. - Pt was previously admitted to [facility] on 04/22/17 for elective right total knee arthroplasty with Dr. Carr and had a fairly uneventful hospitalization. - Pt reported to the ED on 05/12/14 with intractable vomiting and severe hyponatremia. - Pt had reportedly been having vomiting for 5 days prior to admission - Her sodium level at admission was 105, NA 128 (05/15/17), 128 (05/16/17) - limited SIADH w/u NOT c/w SIADH - will repeat SIADH labs, urine NA & CL not previously obtained - pt likely hyponatremic d/t n/v & poor PO intake - request Nephrology Consultation regarding hyponatremia - anticipate d/c to home in next 1-2 days (2) Vomiting Status: Acute Plan: - Improving clinically - Zofran IV - CT abd/pelvis (05/13/17) --> No acute finding is identified within the abdomen or pelvis to explain the clinical symptoms. Nonacute findings include small hiatal hernia and mild atherosclerotic disease. There is a 3 cm right adnexal cystic lesion that likely arises from the right ovary. It has a simple appearance. Suggest 6 month followup transabdominal and transvaginal pelvis ultrasound - see above (3) Diabetes mellitus type 2, insulin dependent Status: Chronic Plan: - stable - NovoLog SSI - Accu checks (4) HTN (hypertension), benign Status: Chronic Plan: - stable - Cont. Atenolol 50mg po daily, Lisinopril 20mg po daily - prn Vasotec, prn Catapres (5) Adnexal cyst Status: Acute Plan: - Incidental finding or right adnexal lesion on CT abd/pelvis (05/13/17) - see above - pt will need repeat imaging in 6 months to reassess for stability Slick Walker DO May 16, 2017 14:33
--- NOTE | 2017-05-16 16:47 | PD.CONS ---
[facility] Service Nephrology Consult Requested By Dr. Walker Reason for Consult Hyponatremia Primary Care Physician Cash Zambrano DO History of Present Illness This is a 67 y/o female patient. She was admitted on 05/12 after she was feeling confused and had overwhelming nausea/vomiting. She was recently discharged from outpatient rehab after elective right total knee replacement. Other PMH of HTN, hyperlipidemia, COPD, and asthma. On arrival her renal function was normal, but her serum sodium measured 105. She was started on 0.9% normal saline and her sodium level improved gradually but has leveled off at 128. She does report that her PCP mentioned her sodium level was low on routine lab work. Looking through her old records, she has chronic hyponatremia, in 2003 it measured 125. She has been on HCTZ for a number of years. Denies history of smoking or lung disease, she had asthma as a child and was exposed to secondhand smoke with her former . She is urinating without difficulty. We were consulted for management. She is a full code. (Mere Eng) Review of Systems Constitutional: COMPLAINS OF: Fatigue, DENIES: Change in appetite Respiratory: DENIES: Sputum production Cardiovascular: DENIES: Chest pain, Dyspnea on Exertion, Lower Extremity Edema Gastrointestinal: DENIES: Abdominal pain Musculoskeletal: COMPLAINS OF: Joint pain, Muscle aches, Stiffness (Mere Eng) Past Family Social History Allergies: Coded Allergies: penicillin G (Unverified Allergy, Intermediate, RXN= HIVES, 05/14/17) tramadol (Unverified Adverse Reaction, Intermediate, Nausea/Vomiting, 05/14) Past Medical History HTN Hyperlipidemia Asthma COPD Obesity Past Surgical History right TKR 2 weeks ago left TKR hiatal hernia repair Reported Medications Commode 3-in-1 (Device) 1 Mis Mis 1 Ea .ROUTE DIRECTED Walker with Front Wheels (Device) 1 Mis Mis 1 Ea .ROUTE DIRECTED CPM-Continuous Passive Motion Machine 1 Ea Device 1 Ea .ROUTE DIRECTED Aspirin Low Dose (Aspirin) 81 Mg Chew 81 Mg CHEW BID Lovenox Inj (Enoxaparin Sodium) 40 Mg/0.4 Ml Syr 40 Mg SQ DAILY [place] (Hydrocodone-Acetaminophen) 7.5-325 mg Tab 1-2 Tab PO Q6H PRN Reported Hydrochlorothiazide 25 Mg Tab 25 Mg PO BID Trulicity Inj (Dulaglutide Inj) 0.75 Mg/0.5 Ml Pen 0.75 Mg SQ Q7D SATURDAY Novolin N Inj (Insulin Human NPH) 1,000 Unit/10 Ml Vial 0 SQ BID Sliding Scale As Directed. Novolin R Inj (Insulin Human Regular) 1,000 Unit/10 Ml Vial 0 SQ TID Sliding Scale As Directed. Clorazepate (Clorazepate Dipotassium) 7.5 Mg Tab 7.5 Mg PO BID PRN Tramadol (Tramadol HCl) 50 Mg Tab 50 Mg PO Q8H PRN Centrum Silver Adult 50+ (Multiple Vitamins W/ Minerals) 1 Tab Tab 1 Tab PO DAILY Vitamin B-12 (Cyanocobalamin) 1,000 Mcg Tab 1,000 Mcg PO DAILY Gabapentin 300 Mg Cap 300 Mg PO BID Vitamin D-1000 (Cholecalciferol) 1,000 Unit Tab 50,000 Units PO WEEKLY Omeprazole 20 Mg Tab 20 Mg PO DAILY Lovastatin 40 Mg Tab 40 Mg PO DAILY Atenolol 50 Mg Tab 50 Mg PO DAILY Lisinopril 20 Mg Tab 20 Mg PO DAILY Active Ordered Medications Current Medications Medications (Trade) Dose Ordered Sig/Ab Route Start Time Stop Time Status Last Admin (NS Flush) 2 ml UNSCH PRN IV FLUSH 05/12/17 18:00 (NS Flush) 2 ml BID IV FLUSH 05/12/17 21:00 05/16/17 08:36 (Narcan Inj) 0.4 mg UNSCH PRN IV 05/12/17 18:00 (Emili-Colace) 1 tab BID PO 05/12/17 21:00 05/16/17 08:34 (Milk Of Magnesia Liq) 30 ml Q12H PRN PO 05/12/17 18:00 05/15/17 20:18 (Senokot) 17.2 mg Q12H PRN PO 05/12/17 18:00 (Dulcolax Supp) 10 mg DAILY PRN RECTAL 05/12/17 18:00 (Lactulose Liq) 30 ml DAILY PRN PO 05/12/17 18:00 (Vasotec Inj) 1.25 mg Q6H PRN IV PUSH 05/12/17 19:00 05/12/17 19:14 (Aspirin Chew) 81 mg BID CHEW 05/12/17 21:00 05/16/17 08:34 (Tenormin) 50 mg DAILY PO 05/13/17 09:00 05/16/17 09:56 (Vitamin B12) 1,000 mcg DAILY PO 05/13/17 09:00 05/16/17 08:34 (Lovenox Inj) 40 mg DAILY SQ 05/13/17 09:00 05/16/17 08:34 (Neurontin) 300 mg BID PO 05/12/17 21:00 05/16/17 08:34 ([place] 7.5-325 Mg) 1 tab Q6H PRN PO 05/12/17 19:15 (Prinivil) 20 mg DAILY PO 05/13/17 09:00 05/16/17 09:56 (Ultram) 50 mg Q8H PRN PO 05/12/17 19:15 (Valium) 5 mg BID PRN PO 05/12/17 19:15 (Protonix) 20 mg DAILY@06 PO 05/13/17 06:00 05/16/17 06:51 (Catapres) 0.1 mg Q8H PRN PO 05/12/17 19:15 (Zofran Inj) 4 mg Q6H PRN IV PUSH 05/12/17 19:15 05/12/17 20:45 Family History No hx of renal disorders Social History , lives alone no smoking hx, denies ETOH functionally independent retired full code (Mere Eng) Physical Exam Vital Signs Vital Signs Date Time Temp Pulse Resp B/P Pulse Ox O2 Delivery O2 Flow Rate FiO2 05/16/17 12:00 96.8 76 18 138/74 96 05/16/17 08:00 96.8 66 18 143/82 100 05/16/17 04:00 96.2 62 18 139/64 99 05/16/17 00:00 96.3 75 17 151/68 99 05/15/17 19:00 97.4 66 17 143/66 98 05/15/17 19:00 97.4 66 17 143/66 98 05/15/17 18:57 71 Physical Exam Elderly female, sitting up in bed awake/alert, follows commands lungs clear CV: S1/S2, RRR non murmurs Abd: soft, non tender Ext: trace edema, right knee incision healing with steri strips intact Laboratory Laboratory Tests Test 05/16/17 07:00 White Blood Count 8.0 Red Blood Count 3.02 Hemoglobin 9.1 Hematocrit 27.1 Mean Corpuscular Volume 89.6 Mean Corpuscular Hemoglobin 30.0 Mean Corpuscular Hemoglobin 33.5 Concent Red Cell Distribution Width 13.8 Platelet Count 292 Mean Platelet Volume 6.7 Neutrophils (%) (Auto) 73.3 Lymphocytes (%) (Auto) 12.4 Monocytes (%) (Auto) 8.0 Eosinophils (%) (Auto) 5.7 Basophils (%) (Auto) 0.6 Neutrophils # (Auto) 5.9 Lymphocytes # (Auto) 1.0 Monocytes # (Auto) 0.6 Eosinophils # (Auto) 0.5 Basophils # (Auto) 0.0 CBC Comment DIFF FINAL Differential Comment Sodium Level 128 Potassium Level 4.0 Chloride Level 94 Carbon Dioxide Level 26.5 Anion Gap 8 Blood Urea Nitrogen 11 Creatinine 0.75 Estimat Glomerular Filtration 77 Rate Random Glucose 170 Calcium Level 8.4 Magnesium Level 2.0 Date/Time Procedure Status Source Growth 05/14/17 18:01 Urine Culture - Final Complete Urine Random Urine 50-100,000 CFU/ML MIXED KASI... (Mere Eng) Result Diagram: 05/16/17 0700 05/16/17 0700 Imaging Last Impressions Abdomen/Pelvis CT 05/13/17 0600 Signed Impressions: Service Date/Time: Saturday, May 13, 2017 08:36 - CONCLUSION: 1. No acute finding is identified within the abdomen or pelvis to explain the clinical symptoms. 2. Nonacute findings include small hiatal hernia and mild atherosclerotic disease. 3. There is a 3 cm right adnexal cystic lesion that likely arises from the right ovary. It has a simple appearance. Suggest correlating with any prior study to document longer term stability. If none are available recommend followup imaging to confirm stability. Suggest 6 month followup transabdominal and transvaginal pelvis ultrasound. Shadi Degroot MD Chest X-Ray 05/12/17 1507 Signed Impressions: Service Date/Time: Friday, May 12, 2017 15:49 - CONCLUSION: No acute disease. Wilfrido Wynne MD Abdomen X-Ray 05/12/17 0000 Signed Impressions: Service Date/Time: Friday, May 12, 2017 15:50 - CONCLUSION: Nonspecific gas pattern No evidence of pathologic distention, free air or mass effect. Wilfrido Wynne MD (Mere Eng) Assessment and Plan Problem List: (1) Acute hyponatremia Plan: She initially improved with IVF, likely acute hyponatremia due to dehydration (from nausea/vomiting) however her sodium level has since stabilized but is still not in normal range also she was taking HCTZ, thiazide diuretics can lower serum sodium levels at this time I would like to check serum TSH, uric acid , and urine sodium to complete the work up for SIADH she is asymptomatic continue IVF overnight, she is no longer vomiting and able to tolerate oral fluids repeat sodium level in am further recommendations based on results of above (2) HTN (hypertension), benign Plan: avoid thiazide diuretics in the future she is on atenolol and lisinopril Assessment and Plan Thank you for the consult, we will follow. (Mere Eng) Assessment and Plan patient was seen and examined. May have chronic hyponatremia: was on HCTZ which is known to cause hyponatremia. She should not be on any thiazide diuretic. Acute worsening of hyponatremia could have been due to nausea, vomiting, hypovolemic hyponatremia Hyponatremia improved, but not completely. She is no longer on thiazide diuretic. It is possible she has underlying SIADH. High urine osmolality and urine Na are consistent with this diagnosis. Obtain serum uric acid: this will be relatively low in SIADH. She may need fluid restriction with or without salt tablets in the future for assisted management. (Chacho Moura MD) Mere Eng May 16, 2017 16:47 Chacho Moura MD May 16, 2017 19:15
[2017-05-17 00:05] VITALS: BP 131/56; PULSE 70; RESP 16; TEMP 98; O2SAT 99
[2017-05-17 04:00] VITALS: BP 121/51; PULSE 64; RESP 16; TEMP 97.7; O2SAT 98
[2017-05-17] MEDS: PANTOPRAZOLE SOD 20 MG DELAYED RELEASE TAB PO SCH (06:13)
[2017-05-17] MEDS: INSULIN ASPART SUPPLEMENTAL SCALE SQ SCH ×3 (06:15→16:00)
[2017-05-17 06:59] VITALS: PULSE 58
[2017-05-17 08:00] VITALS: BP 132/93; PULSE 64; RESP 16; TEMP 97; O2SAT 100
[2017-05-17] MEDS: ENOXAPARIN SODIUM 40 MG/0.4 ML SYRINGE SQ SCH (08:07)
[2017-05-17] MEDS: CYANOCOBALAMIN 1,000 MCG TAB PO SCH (08:07)
[2017-05-17] MEDS: ATENOLOL 50 MG TAB PO SCH (08:07)
[2017-05-17] MEDS: DOCUSATE SODIUM 50 MG/SENNA 8.6 MG TAB PO SCH (08:07)
[2017-05-17] MEDS: GABAPENTIN 300 MG CAP PO SCH (08:07)
[2017-05-17] MEDS: ASPIRIN 81 MG CHEW TAB CHEW SCH (08:07)
[2017-05-17] MEDS: SODIUM CHLORIDE 0.9% FLUSH 10 ML FLUSH IV FLUSH SCH (08:09)
[2017-05-17 09:07] VITALS: PULSE 62
[2017-05-17 09:33] LABS: BICARBONATE 28.3 MEQ/L (21.0-32.0); POTASSIUM 4.1 MEQ/L (3.5-5.1); URIC ACID 3.3 MG/DL (2.6-6.0)
[2017-05-17 09:41] LABS: AUTOMATED NEUTROPHIL # 5.1 TH/MM3 (1.8-7.7); BASOPHIL % 0.6 % (0.0-2.0); EOSINOPHIL # 0.5 TH/MM3 (0-0.4); EOSINOPHIL % 7.1 % (0.0-4.0); HEMATOCRIT 25.4 % (35.0-46.0); HEMO FLAGS DIFF FINAL; LYMPH % 14.2 % (9.0-44.0); MEAN CELL VOLUME 89.4 FL (80.0-100.0); MEAN CORPUSCULAR HEMOGLOBIN 30.8 PG (27.0-34.0); MEAN CORPUSCULAR HGB CONC 34.4 % (32.0-36.0); MONO % 7.5 % (0.0-8.0); NEUT % 70.6 % (16.0-70.0); PLATELET COUNT 264 TH/MM3 (150-450); RED BLOOD COUNT 2.84 MIL/MM3 (4.00-5.30); RED CELL DISTRIBUTION WIDTH 13.5 % (11.6-17.2); WHITE BLOOD COUNT 7.2 TH/MM3 (4.0-11.0)
--- NOTE | 2017-05-17 12:02 | HHI.NPPN ---
Subjective Interval History Sitting up in a chair. Her sodium level has improved. (Mere Eng) Objective Data Data 05/16/17 05/17/17 19:00 07:00 Intake Total 1828 ml Balance 1828 ml Intake Oral 960 ml IV Total 868 ml # Voids 3 Vital Signs Date Time Temp Pulse Resp B/P Pulse Ox O2 Delivery O2 Flow Rate FiO2 05/17/17 09:07 62 05/17/17 08:12 Room Air 05/17/17 06:59 58 05/17/17 04:00 97.7 64 16 121/51 98 05/17/17 00:05 98.0 70 16 131/56 99 05/16/17 20:30 75 05/16/17 20:00 97.9 76 16 130/58 98 05/16/17 19:05 Room Air 05/16/17 16:00 97.9 98 16 135/51 98 05/16/17 12:00 96.8 76 18 138/74 96 (Mere Eng) -: 05/17/17 0817 05/17/17 0817 Physical Exam General Appearance: Well Developed, Well Nourished, No Acute Distress, Comfortable, Obese (Mere Eng) Throat Throat Exam: Oral Mucosa [place] & Moist (Mere Eng) Pulmonary Resp Exam: Clear Bilaterally, Breath Sounds Equal (Mere Eng) Cardiology CV Exam: Regular, Normal Sinus Rhythm (Mere Eng) Gastrointestinal/Abdomen GI Exam: Soft, Non-Tender, Bowel Sounds Present, Positive Bowel Movement ( Mere Eng) Musculoskeletal MS Exam: Joints Intact, Normal Gait, Normal Tone, Good Strength MS Remarks right anterior knee incision s/p TKR (Mere Eng) Integumentary Skin Exam: Warm, Dry (Mere Eng) Extremeties Extremities Exam: No Edema, Pedal Pulses Palpable (Mere Eng) Neurologic Neuro Exam: Alert, Awake, Oriented, Speech Clear, Moving All Extremities ( Mere Eng) Psychiatric Psych Exam: Appropriate Responses (Mere Eng) Assessment/Plan Discussed Condition With: Patient Electrolyte Assessment: Hyponatremia Problem List: (1) Acute hyponatremia Plan: she had hypovolemic hyponatremia due to nausea/vomiting, sodium improving with 0.9% NS she has underlying chronic hyponatremic due to Thiazide diuretic use; this should NOT be continued at discharge it remains to be seen where her serum sodium will end up recommend to repeat labs in 2 weeks, we will follow in CKD clinic TSH and uric acid are normal and do not indicate SIADH but they were drawn after she has received IVF and are unreliable At discharge she should be on a fluid restriction no NaCl tablets at this time repeat sodium level in am cleared for discharge today or tomorrow (2) HTN (hypertension), benign Plan: avoid thiazide diuretics in the future she is on atenolol and lisinopril (Mere Eng) Plan patient was seen and examined. Serum Na is stable, she can be discharged from renal standpoint. Hyponatremia likely from HCTZ, acute presentation due to nausea and vomiting. Repeat Serum Na in about 3 weeks, avoid thiazide type diuretic. If serum Na is still low consider SIADH. (Chacho Moura MD) Mere Eng May 17, 2017 12:02 Chacho Moura MD May 17, 2017 20:53
[2017-05-17 12:30] VITALS: BP 154/77; PULSE 54; TEMP 98; O2SAT 98
--- NOTE | 2017-05-17 13:23 | HHI.DS ---
Discharge Summary Admission Date May 12, 2017 at 17:18 Discharge Date: May 17, 2017 Admitting Diagnosis severe hyponatremia/vomitting (1) Acute hyponatremia Diagnosis: Principal (2) Vomiting Diagnosis: Secondary (3) Diabetes mellitus type 2, insulin dependent Diagnosis: Secondary (4) HTN (hypertension), benign Diagnosis: Secondary (5) Adnexal cyst Diagnosis: Secondary Consultants Dr. Coreas - Nephrology Brief History 67-year-old female with history of right knee replacement done 2 weeks ago, presents to the ER today for 2 days history of worsening nausea, vomiting, not improved with Zofran. She denies any fevers, states that she did have some loose stools today. She denies any blood in the stools, abdominal pains, or any other symptoms. On lab work up showed sodium of 105 and was 134 2 weeks ago will start on ns IV fluid and follow up labs . denies any neurologic symptoms. CBC/BMP: 05/17/17 0817 05/17/17 0817 Significant Findings Laboratory Tests Test 05/14/17 05/14/17 05/15/17 05/16/17 15:47 18:01 07:25 07:00 Sodium Level 126 MEQ/L 128 MEQ/L 128 MEQ/L (136-145) (136-145) (136-145) Chloride Level 94 MEQ/L 97 MEQ/L 94 MEQ/L (98-107) (98-107) (98-107) Estimat Glomerular Filtration 61 ML/MIN (>89) 79 ML/MIN (>89) 77 ML/MIN (>89) Rate Random Glucose 133 MG/DL 126 MG/DL 170 MG/DL (74-106) (74-106) (74-106) Calcium Level 8.2 MG/DL 8.4 MG/DL 8.4 MG/DL (8.5-10.1) (8.5-10.1) (8.5-10.1) Urine Turbidity HAZY (CLEAR) Urine Leukocyte Esterase LARGE (NEG) Urine WBC 7 /hpf (0-5) Urine Bacteria MOD /hpf (NONE) Red Blood Count 2.97 MIL/MM3 3.02 MIL/MM3 (4.00-5.30) (4.00-5.30) Hemoglobin 9.2 GM/DL 9.1 GM/DL (11.6-15.3) (11.6-15.3) Hematocrit 25.9 % 27.1 % (35.0-46.0) (35.0-46.0) Mean Platelet Volume 6.9 FL 6.7 FL (7.0-11.0) (7.0-11.0) Neutrophils (%) (Auto) 71.2 % 73.3 % (16.0-70.0) (16.0-70.0) Eosinophils (%) (Auto) 5.2 % (0.0-4.0) 5.7 % (0.0-4.0) Eosinophils # (Auto) 0.5 TH/MM3 (0-0.4) Test 05/16/17 05/17/17 15:42 08:17 Serum Osmolality 273 MOSM/KG (275-295) Red Blood Count 2.84 MIL/MM3 (4.00-5.30) Hemoglobin 8.7 GM/DL (11.6-15.3) Hematocrit 25.4 % (35.0-46.0) Mean Platelet Volume 6.9 FL (7.0-11.0) Neutrophils (%) (Auto) 70.6 % (16.0-70.0) Eosinophils (%) (Auto) 7.1 % (0.0-4.0) Eosinophils # (Auto) 0.5 TH/MM3 (0-0.4) Sodium Level 129 MEQ/L (136-145) Chloride Level 95 MEQ/L (98-107) Estimat Glomerular Filtration 86 ML/MIN (>89) Rate Random Glucose 133 MG/DL (74-106) Calcium Level 8.2 MG/DL (8.5-10.1) Imaging Last Impressions Abdomen/Pelvis CT 05/13/17 0600 Signed Impressions: Service Date/Time: Saturday, May 13, 2017 08:36 - CONCLUSION: 1. No acute finding is identified within the abdomen or pelvis to explain the clinical symptoms. 2. Nonacute findings include small hiatal hernia and mild atherosclerotic disease. 3. There is a 3 cm right adnexal cystic lesion that likely arises from the right ovary. It has a simple appearance. Suggest correlating with any prior study to document longer term stability. If none are available recommend followup imaging to confirm stability. Suggest 6 month followup transabdominal and transvaginal pelvis ultrasound. Shadi Degroot MD Chest X-Ray 05/12/17 1507 Signed Impressions: Service Date/Time: Friday, May 12, 2017 15:49 - CONCLUSION: No acute disease. Wilfrido Wynne MD Abdomen X-Ray 05/12/17 0000 Signed Impressions: Service Date/Time: Friday, May 12, 2017 15:50 - CONCLUSION: Nonspecific gas pattern No evidence of pathologic distention, free air or mass effect. Wilfrido Wynne MD PE at Discharge General: NAD Chest: CTA bilaterally Cardiac: Regular Abd: +BS, soft ND/NT Ext: No edema Hospital Course Acute hyponatremia - Pt is a 67 y/o female with diabetes mellitus, HTN, hyperlipidemia and osteoarthritis. - Pt was previously admitted to [facility] on 04/22/17 for elective right total knee arthroplasty with Dr. Carr and had a fairly uneventful hospitalization. - Pt reported to the ED on 05/12/14 with intractable vomiting and severe hyponatremia. - Pt had reportedly been having vomiting for 5 days prior to admission - Her sodium level at admission was 105, NA 128 (05/15/17), 128 (05/16/17) - limited SIADH w/u NOT c/w SIADH - pt likely hyponatremic d/t n/v & poor PO intake - Nephrology was consulted for further recommendations regarding her hyponatremia and it was felt that she had hypovolemic hyponatremia due to nausea/vomiting, but that she also she has underlying chronic hyponatremic due to Thiazide diuretic use; this will NOT be continued at discharge - TSH and uric acid are normal and labs do not indicate SIADH but they were drawn after she has received IVF and are unreliable - At discharge she will be on a fluid restriction, 1.5L. There is no need for NaCl tablets at this time - We will arrange for [facility] and she will have repeat labs in 2 weeks with results to Dr. Moura and to Dr. Zambrano, her PCP. - Pt will need to followup with Dr. Moura in 2 weeks - She will need to followup with Dr. Zambrano in 1 week. Vomiting - Improving clinically - CT abd/pelvis (05/13/17) --> No acute finding is identified within the abdomen or pelvis to explain the clinical symptoms. Nonacute findings include small hiatal hernia and mild atherosclerotic disease. There is a 3 cm right adnexal cystic lesion that likely arises from the right ovary. It has a simple appearance. Suggest 6 month followup transabdominal and transvaginal pelvis ultrasound - see above Diabetes mellitus type 2, insulin dependent - stable - Home meds will be resumed at discharge HTN (hypertension), benign - stable - Cont. Atenolol 50mg po daily, Lisinopril 20mg po daily - HCTZ will be stopped at discharge. Adnexal cyst - Incidental finding or right adnexal lesion on CT abd/pelvis (05/13/17) - Pt will need repeat imaging in 6 months to reassess for stability, this is to be ordered by her PCP. Pt Condition on Discharge: Stable Discharge Disposition: Disch w/ Home Health Serv Discharge Instructions DIET: Follow Instructions for: Diabetic Diet Activities you can perform: Regular-No Restrictions Follow up Referrals: Nephrology - [address] Moura PCP Follow-up - [address] Cash Zambrano Continued Medications: Aspirin (Aspirin Low Dose) 81 Mg Chew 81 MG CHEW BID for Prevent Blood Clot, #60 TAB 0 Refills Atenolol (Atenolol) 50 Mg Tab 50 MG PO DAILY for Blood Pressure Management, #30 TAB 0 Refills Cholecalciferol (Vitamin D-1000) 1,000 Unit Tab 01667 UNITS PO WEEKLY for Nutritional Supplement, #1 BOTTLE 0 Refills Clorazepate (Clorazepate) 7.5 Mg Tab 7.5 MG PO BID PRN for Anxiety, TAB 0 Refills Cyanocobalamin (Vitamin B-12) 1,000 Mcg Tab 1000 MCG PO DAILY for Nutritional Supplement, #1 BOTTLE 0 Refills Dulaglutide Inj (Trulicity Inj) 0.75 Mg/0.5 Ml Pen 0.75 MG SQ Q7D for Blood Sugar Management, #4 PEN 0 Refills SATURDAY Gabapentin (Gabapentin) 300 Mg Cap 300 MG PO BID, #60 CAP 0 Refills Insulin Human NPH Inj (Novolin N Inj) 1,000 Unit/10 Ml Vial 0 SQ BID for Blood Sugar Management, #10 ML 0 Refills Sliding Scale As Directed. Insulin Human Regular Inj (Novolin R Inj) 1,000 Unit/10 Ml Vial 0 SQ TID for Blood Sugar Management, #10 ML 0 Refills Sliding Scale As Directed. Lisinopril (Lisinopril) 20 Mg Tab 20 MG PO DAILY, #30 TAB 0 Refills Lovastatin (Lovastatin) 40 Mg Tab 40 MG PO DAILY for Cholesterol Management, #30 TAB 0 Refills Multiple Vitamins W/ Minerals (Centrum Silver Adult 50+) 1 Tab Tab 1 TAB PO DAILY Omeprazole (Omeprazole) 20 Mg Tab 20 MG PO DAILY, #30 TAB 0 Refills Tramadol (Tramadol) 50 Mg Tab 50 MG PO Q8H PRN for PAIN, TAB 0 Refills Discontinued Medications: Enoxaparin Inj (Lovenox Inj) 40 Mg/0.4 Ml Syr 40 MG SQ DAILY for Blood Clot Prevention, #7 SYRINGE 0 Refills Hydrochlorothiazide (Hydrochlorothiazide) 25 Mg Tab 25 MG PO BID, #30 TAB Hydrocodone-Acetaminophen ([place]) 7.5-325 mg Tab 1-2 TAB PO Q6H PRN for PAIN, #90 TAB 0 Refills Angela Friedman May 17, 2017 13:23 Slick Walker DO May 20, 2017 01:04
== END 2017-05-17 17:36 | disposition home health service (06) | DRG 641 ==
LOC: NEPC 14:50 → NEDA 17:18 → N06A 20:09
PROVIDERS: ADMIT Hospitalist; ATTEND Hospitalist
DX: E87.1 Hypo-osmolality and hyponatremia (principal); E86.0 Dehydration; J44.9 Chronic obstructive pulmonary disease, unspecified; I10 Essential (primary) hypertension; T50.2X5A Adverse effect of carbonic-anhydrase inhibitors, benzothiadiazides and other diuretics, initial encounter; R11.2 Nausea with vomiting, unspecified; R19.7 Diarrhea, unspecified; K21.9 Gastro-esophageal reflux disease without esophagitis; E11.9 Type 2 diabetes mellitus without complications; M19.90 Unspecified osteoarthritis, unspecified site; E78.00 Pure hypercholesterolemia, unspecified; Z96.653 Presence of artificial knee joint, bilateral; Z79.4 Long term (current) use of insulin; E66.9 Obesity, unspecified; K44.9 Diaphragmatic hernia without obstruction or gangrene; N83.201 Unspecified ovarian cyst, right side; Y92.009 Unspecified place in unspecified non-institutional (private) residence as the place of occurrence of the external cause
CPT/HCPCS: 71010; 74020; 74176; 80048; 80053; 81001; 82436; 82948; 83690; 83735; 83930; 83935; 84295; 84300; 84443; 84550; 85025; 87086; 96374; J1650; J1815; J2405; J7030; J7040